=== PATIENT | female | born 1985 ===

== ENCOUNTER 2018-02-27 08:41 | Inpatient (IN) | payer BC ==
[2018-02-27] MEDS ORDERED: Sodium Chloride 0.9% 10 ML Syringe FLUSH PRN (09:00)
[2018-02-27] MEDS ORDERED: Albuterol/Ipratropium 3.0-0.5 MG/3 ML Neb Soln NEB ONE (09:05)
[2018-02-27] MEDS ORDERED: Azithromycin 250 MG Tab PO ONE (09:05)
[2018-02-27] MEDS ORDERED: methylPREDNISolone Sodium Succinate 125 MG/2 ML SDV IVPUSH ONE (09:05)
[2018-02-27] MEDS ORDERED: Sodium Chloride 0.9% 1,000 ML IV ONE (09:07)
[2018-02-27] MEDS ORDERED: cefTRIAXone 2 GM Vial IVPUSH SCH (11:15)
--- NOTE | 2018-02-27 11:33 | EDM.PDOC ---
ED HPI GENERAL MEDICAL PROBLEM - General Chief Complaint: Respiratory Problem Stated Complaint: LOW OXYGEN SENT FROM CLINIC Time Seen by Provider: 02/27/18 08:54 Source of Information: Reports: Patient History Limitations: Reports: No Limitations - History of Present Illness INITIAL COMMENTS - FREE TEXT/NARRATIVE: 32 y/o F presents with cough and SOB. Started 2 days ago. + cough, mildly productive. Feels SOB with exertion, ok at rest. Mild diffuse chest discomfort. No known fever but has had sweats. Feels fatigued. No nausea/vomiting. No abd pain. No rhinorrhea/sore throat. No lower extremity pain or swelling. Checked in to walk in clinic this AM and was noted to have SpO2 of 79% on RA so sent here. No history of reactive airway disease. 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 Denies: Fever HEENT: Denies: Throat Pain Respiratory: Reports: Shortness of Breath, Cough Cardiovascular: Denies: Edema Endocrine: Reports: No Symptoms GI/Abdominal: Denies: Abdominal Pain : Reports: No Symptoms Musculoskeletal: Reports: No Symptoms Skin: Reports: No Symptoms Neurological: Reports: No Symptoms Psychiatric: Reports: No Symptoms Hematologic/Lymphatic: Reports: No Symptoms Immunologic: Reports: No Symptoms ED EXAM, GENERAL - Physical Exam Exam: See Below Exam Limited By: No Limitations General Appearance: Alert, WD/WN, No Apparent Distress Eye Exam: Bilateral Eye: Normal Inspection Ears: Normal External Exam Nose: Normal Inspection Throat/Mouth: Normal Inspection, Normal Oropharynx, Normal Voice Head: Atraumatic, Normocephalic Neck: Normal Inspection Respiratory/Chest: No Accessory Muscle Use, Chest Non-Tender, Crackles, Rales ( bilat) Cardiovascular: Normal Peripheral Pulses, Regular Rate, Rhythm, No Edema, No Murmur GI/Abdominal: Soft, Non-Tender, No Distention Extremities: Normal Inspection, No Pedal Edema Neurological: Alert, Oriented, Normal Cognition, No Motor/Sensory Deficits Psychiatric: Normal Affect, Normal Mood Skin Exam: Warm, Dry, Intact, Normal Color, No Rash Course - Vital Signs Last Recorded V/S: Last Vital Signs Temp 35.8 C 02/27/18 12:40 Pulse 105 H 02/27/18 12:40 Resp 19 02/27/18 12:40 BP 150/88 H 02/27/18 12:40 Pulse Ox 99 02/27/18 12:40 - Orders/Labs/Meds Orders: Active Orders 24 hr Category Date Time Status RT Aerosol Therapy [RC] ASDIRECTED Care 02/27/18 09:06 Active Chest 2V [CR] Stat Exams 02/27/18 09:00 Taken CULTURE BLOOD [BC] Stat Lab 02/27/18 09:36 Received CULTURE BLOOD [BC] Stat Lab 02/27/18 09:45 Received LACTIC ACID [CHEM] Stat Lab 02/27/18 09:00 Ordered Sodium Chloride 0.9% [Saline Flush] Med 02/27/18 09:00 Active 10 ml FLUSH ASDIRECTED PRN cefTRIAXone [Rocephin] Med 02/27/18 11:15 Active 2 gm IVPUSH Q24H Blood Culture x2 Reflex Set [OM.PC] Stat Oth 02/27/18 09:00 Ordered Peripheral IV Insertion Adult [OM.PC] Routine Oth 02/27/18 09:00 Ordered Medication Orders Acetaminophen (Tylenol) 650 mg PO Q4H PRN PRN Reason: Pain (Mild 1-3)/fever Hydrocodone Bitart/Acetaminophen ([place] 325-5 Mg) 1 tab PO Q4H PRN PRN Reason: Pain (moderate 4-6) Albuterol/Ipratropium (Duoneb 3.0-0.5 Mg/3 Ml) 3 ml NEB Q4H PRN PRN Reason: Shortness Of Breath/wheezing Albuterol/Ipratropium (Duoneb 3.0-0.5 Mg/3 Ml) 3 ml NEB Q6HRRT [facility] Bisacodyl (Dulcolax) 5 mg PO DAILY PRN PRN Reason: Constipation Ceftriaxone Sodium (Rocephin) 2 gm IVPUSH Q24H [facility] Last Admin: 02/27/18 11:20 Dose: 2 gm Docusate Sodium (Colace) 100 mg PO BID PRN PRN Reason: Constipation Enoxaparin Sodium (Lovenox) 40 mg SUBCUT DAILY [facility] Guaifenesin/Phenylephrine HCl (Robitussin Dm) 10 ml PO QID PRN PRN Reason: cough Hydralazine HCl (Apresoline) 20 mg IVPUSH Q4H PRN PRN Reason: Hypertension Azithromycin 500 mg/ Sodium (Chloride) 250 mls @ 250 mls/hr IV Q24H [facility] Ondansetron HCl (Zofran Odt) 4 mg PO Q6H PRN PRN Reason: nausea, able to take PO Ondansetron HCl (Zofran) 4 mg IV Q6H PRN PRN Reason: Nausea/Vomiting Polyethylene Glycol (Miralax) 17 gm PO DAILY PRN PRN Reason: Constipation Saccharomyces Boulardii (Florastor) 250 mg PO DAILY [facility] Senna/Docusate Sodium (Senna Plus) 1 tab PO BID PRN PRN Reason: Constipation Sodium Chloride (Saline Flush) 10 ml FLUSH ASDIRECTED PRN PRN Reason: Keep Vein Open Last Admin: 02/27/18 09:34 Dose: 10 ml Labs: Laboratory Tests 02/27/18 02/27/18 02/27/18 Range/Units 09:00 09:16 09:16 WBC 9.20 (3.98-10.04) K/mm3 RBC 4.54 (3.98-5.22) M/mm3 Hgb 13.4 (11.2-15.7) gm/L Hct 41.8 (34.1-44.9) % MCV 92.1 (79.4-94.8) fl MCH 29.5 (25.6-32.2) pg MCHC 32.1 L (32.2-35.5) g/dl RDW Std Deviation 44.1 (36.4-46.3) fL Plt Count 292 (182-369) K/mm3 MPV 9.4 (9.4-12.3) fl Neut % (Auto) 82.1 H (34.0-71.1) % Lymph % (Auto) 4.8 L (19.3-51.7) % [place] % (Auto) 12.0 (4.7-12.5) % Eos % (Auto) 0.5 L (0.7-5.8) Baso % (Auto) 0.3 (0.1-1.2) % Neut # (Auto) 7.55 H (1.56-6.13) K/mm3 Lymph # (Auto) 0.44 L (1.18-3.74) K/mm3 [place] # (Auto) 1.10 H (0.24-0.36) K/mm3 Eos # (Auto) 0.05 (0.04-0.36) K/mm3 Baso # (Auto) 0.03 (0.01-0.08) K/mm3 Manual Slide Review Abnormal smear Sodium 137 (136-145) mEq/L Potassium 3.8 (3.5-5.1) mEq/L Chloride 102 (98-107) mEq/L Carbon Dioxide 27 (21-32) mEq/L Anion Gap 11.8 (5-15) BUN 8 (7-18) mg/dL Creatinine 0.5 L (0.55-1.02) mg/dL Est Cr Clr Drug Dosing 119.63 mL/min Estimated GFR (MDRD) > 60 (>60) mL/min BUN/Creatinine Ratio 16.0 (14-18) Glucose 107 H (74-106) mg/dL Calcium 8.0 L (8.5-10.1) mg/dL Total Bilirubin 0.2 (0.2-1.0) mg/dL AST 19 (15-37) U/L ALT 25 (14-59) U/L Alkaline Phosphatase 69 (46-116) U/L C-Reactive Protein 6.3 H* (<1.0) mg/dL Total Protein 7.5 (6.4-8.2) g/dl Albumin 3.2 L (3.4-5.0) g/dl Globulin 4.3 gm/dL Albumin/Globulin Ratio 0.7 L (1-2) Mycoplasma pneumon IgM Positive H (NEGATIVE) Meds: Medications Generic Name Dose Route Start Last Admin Trade Name Freq PRN Reason Stop Dose Admin Acetaminophen 650 mg 02/27/18 12:42 Tylenol PO Q4H PRN Pain (Mild 1-3)/fever Hydrocodone Bitart/Acetaminophen 1 tab 02/27/18 12:42 [place] 325-5 Mg PO Q4H PRN Pain (moderate 4-6) Albuterol/Ipratropium 3 ml 02/27/18 12:42 Duoneb 3.0-0.5 Mg/3 Ml NEB Q4H PRN Shortness Of Breath/wheezing Albuterol/Ipratropium 3 ml 02/27/18 15:00 Duoneb 3.0-0.5 Mg/3 Ml NEB Q6HRRT [facility] Bisacodyl 5 mg 02/27/18 12:42 Dulcolax PO DAILY PRN Constipation Ceftriaxone Sodium 2 gm 02/27/18 11:15 02/27/18 11:20 Rocephin IVPUSH 2 gm Q24H [facility] Administration Docusate Sodium 100 mg 02/27/18 12:42 Colace PO BID PRN Constipation Enoxaparin Sodium 40 mg 02/28/18 09:00 Lovenox SUBCUT DAILY [facility] Guaifenesin/Phenylephrine HCl 10 ml 02/27/18 12:42 Robitussin Dm PO QID PRN cough Hydralazine HCl 20 mg 02/27/18 12:52 Apresoline IVPUSH Q4H PRN Hypertension Azithromycin 500 mg/ Sodium 250 mls @ 250 mls/hr 02/28/18 09:00 Chloride IV Q24H [facility] Ondansetron HCl 4 mg 02/27/18 12:42 Zofran Odt PO Q6H PRN nausea, able to take PO Ondansetron HCl 4 mg 02/27/18 12:42 Zofran IV Q6H PRN Nausea/Vomiting Polyethylene Glycol 17 gm 02/27/18 12:42 Miralax PO DAILY PRN Constipation Saccharomyces Boulardii 250 mg 02/27/18 12:45 Florastor PO DAILY [facility] Senna/Docusate Sodium 1 tab 02/27/18 12:42 Senna Plus PO BID PRN Constipation Sodium Chloride 10 ml 02/27/18 09:00 02/27/18 09:34 Saline Flush FLUSH 10 ml ASDIRECTED PRN Administration Keep Vein Open Discontinued Medications Generic Name Dose Route Start Last Admin Trade Name Luis Antonioq PRN Reason Stop Dose Admin Albuterol/Ipratropium 3 ml 02/27/18 09:05 02/27/18 09:19 Duoneb 3.0-0.5 Mg/3 Ml NEB 02/27/18 09:06 3 ml ONETIME ONE Administration Azithromycin 500 mg 02/27/18 09:05 02/27/18 09:32 Zithromax PO 02/27/18 09:06 500 mg ONETIME ONE Administration Azithromycin 500 mg 02/28/18 09:00 Zithromax IV Q24H [facility] Sodium Chloride 1,000 mls @ 1,000 mls/hr 02/27/18 09:07 02/27/18 09:34 Normal Saline IV 02/27/18 10:06 1,000 mls/hr ONETIME ONE Administration Methylprednisolone Sodium Succinate 125 mg 02/27/18 09:05 02/27/18 09:35 Solu-Medrol IVPUSH 02/27/18 09:06 125 mg ONETIME ONE Administration - Re-Assessments/Exams Free Text/Narrative Re-Assessment/Exam: 02/27/18 13:46 EKG shows NSR, no significant ST/T abnormality. CXR shows R middle lobe infiltrate. Patient continues to have O2 requirement. Labs show normal WBC at 9 , +82% neutrophils. Labs otherwise unremarkable. Discussed with Dr. Trivedi who agrees to admit the patient given oxygen requirement. Departure - Departure Time of Disposition: 11:31 Disposition: Admitted As Inpatient 64 Clinical Impression: Hypoxia Pneumonia Qualifiers: Pneumonia type: due to unspecified organism Laterality: right Lung location: middle lobe of lung Qualified Code(s): J18.1 - Lobar pneumonia, unspecified organism - Discharge Information - My Orders Last 24 Hours: My Active Orders 02/27/18 09:00 Chest 2V [CR] Stat LACTIC ACID [CHEM] Stat Sodium Chloride 0.9% [Saline Flush] 10 ml FLUSH ASDIRECTED PRN Blood Culture x2 Reflex Set [OM.PC] Stat Peripheral IV Insertion Adult [OM.PC] Routine 02/27/18 09:06 RT Aerosol Therapy [RC] ASDIRECTED 02/27/18 09:36 CULTURE BLOOD [BC] Stat 02/27/18 09:45 CULTURE BLOOD [BC] Stat 02/27/18 11:15 cefTRIAXone [Rocephin] 2 gm IVPUSH Q24H - Assessment/Plan Last 24 Hours: My Active Orders 02/27/18 09:00 Chest 2V [CR] Stat LACTIC ACID [CHEM] Stat Sodium Chloride 0.9% [Saline Flush] 10 ml FLUSH ASDIRECTED PRN Blood Culture x2 Reflex Set [OM.PC] Stat Peripheral IV Insertion Adult [OM.PC] Routine 02/27/18 09:06 RT Aerosol Therapy [RC] ASDIRECTED 02/27/18 09:36 CULTURE BLOOD [BC] Stat 02/27/18 09:45 CULTURE BLOOD [BC] Stat 02/27/18 11:15 cefTRIAXone [Rocephin] 2 gm IVPUSH Q24H
--- NOTE | 2018-02-27 12:35 | PCM.HP ---
H&P History of Present Illness - General Date of Service: 02/27/18 Admit Problem/Dx: Admission Diagnosis/Problem Admission Diagnosis/Problem Pneumonia Source of Information: Patient, Old Records, Provider, RN, RN Notes Reviewed History Limitations: Reports: No Limitations - History of Present Illness Initial Comments - Free Text/Narative: Barbara Jolly is a 32 yo female who presents to our ED today 02/27/2018, with cough and shortness of breath over the past 2 days. She was reportedly seen in our clinic and found to have an oxygen saturation of 79% and told to come to the ER. She denies recent fever but has had felt sweaty. Has been fatigued. No nausea or vomiting, abdominal pain, rhinorrhea, sore throat, lower extremity pain, swelling. No history of reactive airway disease In the ED temperature was 36.4 Celsius. [id number]. Respirations 22. Blood pressure 141/98. Pulse ox 97%. Labs were obtained There is no leukocytosis with white blood count of 9.20. Hemoglobin 13.4. Hematocrit 41.8. she is normocytic. Platelet of 292,000. Neutrophils are elevated at 82.1%. Sodium was 137. Potassium 3.8. Chloride 102. Carbon monoxide 27. Anion gap 11.8. BUN 8. Creatinine low at 0.5. EGFR greater than 60. Glucose 107. Calcium 8.0. Bilirubin 0.2. AST is 19, ALT 25, alkaline phosphatase 69. Total protein 7.5. Albumin is slightly low at 3.2. Chest x-ray was obtained and does show a right middle lobe pneumonia Formal radiologist read is still pending. She was started on Rocephin and given azithromycin. She's also given 1 L fluid bolus, DuoNeb, and 145 mg Solu-Medrol. EKG was obtained and shows NSR with no significant ST abnormality. Lactic acid is pending. Blood cultures were obtained. She carries a history of: PCOS, PTSD, anxiety, morbid obesity, history of C. difficile, meralgia paraesthetica bilaterally. She was never a smoker. She is subsequently admitted to the medical floor. She is a full code. Her PCP is Stephanie Olivares PA-C here at [facility]. 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 Denies: Fever HEENT: Reports: No Symptoms. Denies: Ear Pain, Eye Pain, Headaches, Rhinitis, Post Nasal Drip, Sinus Congestion, Sore Throat, Vertigo, Visual Changes Pulmonary: Reports: Shortness of Breath, Cough, Sputum. Denies: Wheezing, Pleuritic Chest Pain, Hemoptysis Cardiovascular: Reports: Dyspnea on Exertion, Blood Pressure Problem (history of ). Denies: Chest Pain, Palpitations, Edema, Lightheadedness Gastrointestinal: Reports: No Symptoms. Denies: Abdominal Pain, Constipation, Diarrhea, Nausea, Vomiting Genitourinary: Reports: No Symptoms. Denies: Dysuria, Frequency, Burning, Pain , Urgency Musculoskeletal: Reports: No Symptoms Skin: Reports: No Symptoms Psychiatric: Reports: No Symptoms Neurological: Reports: No Symptoms. Denies: Dizziness, Headache, Numbness, Difficulty Walking, Gait Disturbance Hematologic/Lymphatic: Reports: No Symptoms Immunologic: Reports: No Symptoms Exam - Exam Exam: See Below - Vital Signs Vital Signs: Last Vital Signs Temp 97.6 F 02/27/18 08:52 Pulse 111 H 02/27/18 08:52 Resp 22 H 02/27/18 08:52 BP 141/98 H 02/27/18 08:52 Pulse Ox 97 02/27/18 09:06 Weight: 385 lb - Exam Quality Assessment: Supplemental Oxygen, Other (Morbidly obease ) General: Alert, Oriented, Cooperative. No: Mild Distress HEENT: Conjunctiva Clear, EACs Clear, EOMI, Hearing Intact, Mucosa Moist & Aquilla , Nares Patent, Posterior Pharynx Clear, PERRLA Neck: Supple, Trachea Midline, Full Range of Motion. No: JVD Lungs: Normal Respiratory Effort, Decreased Breath Sounds, Crackles, Rales Cardiovascular: Regular Rate, Regular Rhythm, Other (distant heart tones ) GI/Abdominal Exam: Normal Bowel Sounds, Soft, Non-Tender, No Organomegaly, No Distention, No Abnormal Bruit, No Mass, Pelvis Stable (Female) Exam: Deferred Rectal (Female) Exam: Deferred Back Exam: Normal Inspection, Full Range of Motion Extremities: Normal Inspection, Normal Range of Motion, Non-Tender, No Pedal Edema, Normal Capillary Refill Peripheral Pulses: 1+: Posterior Tibial (L), Posterior Tibial (R), Dorsalis Pedis (L), Dorsalis Pedis (R), 2+: Radial (L), Radial (R) Skin: Warm, Dry, Intact Neurological: Cranial Nerves Intact (grossly ) Neuro Extensive - Mental Status: Alert, Oriented x3, Normal Mood/Affect, Normal Cognition, Memory Intact Psychiatric: Alert, Normal Affect, Normal Mood - Patient Data Lab Results Last 24 hrs: Laboratory Results - last 24 hr 02/27/18 02/27/18 Range/Units 09:00 09:16 WBC 9.20 (3.98-10.04) K/mm3 RBC 4.54 (3.98-5.22) M/mm3 Hgb 13.4 (11.2-15.7) gm/L Hct 41.8 (34.1-44.9) % MCV 92.1 (79.4-94.8) fl MCH 29.5 (25.6-32.2) pg MCHC 32.1 L (32.2-35.5) g/dl RDW Std Deviation 44.1 (36.4-46.3) fL Plt Count 292 (182-369) K/mm3 MPV 9.4 (9.4-12.3) fl Neut % (Auto) 82.1 H (34.0-71.1) % Lymph % (Auto) 4.8 L (19.3-51.7) % [place] % (Auto) 12.0 (4.7-12.5) % Eos % (Auto) 0.5 L (0.7-5.8) Baso % (Auto) 0.3 (0.1-1.2) % Neut # (Auto) 7.55 H (1.56-6.13) K/mm3 Lymph # (Auto) 0.44 L (1.18-3.74) K/mm3 [place] # (Auto) 1.10 H (0.24-0.36) K/mm3 Eos # (Auto) 0.05 (0.04-0.36) K/mm3 Baso # (Auto) 0.03 (0.01-0.08) K/mm3 Manual Slide Review Abnormal smear Sodium 137 (136-145) mEq/L Potassium 3.8 (3.5-5.1) mEq/L Chloride 102 (98-107) mEq/L Carbon Dioxide 27 (21-32) mEq/L Anion Gap 11.8 (5-15) BUN 8 (7-18) mg/dL Creatinine 0.5 L (0.55-1.02) mg/dL Est Cr Clr Drug Dosing 119.63 mL/min Estimated GFR (MDRD) > 60 (>60) mL/min BUN/Creatinine Ratio 16.0 (14-18) Glucose 107 H (74-106) mg/dL Calcium 8.0 L (8.5-10.1) mg/dL Total Bilirubin 0.2 (0.2-1.0) mg/dL AST 19 (15-37) U/L ALT 25 (14-59) U/L Alkaline Phosphatase 69 (46-116) U/L Total Protein 7.5 (6.4-8.2) g/dl Albumin 3.2 L (3.4-5.0) g/dl Globulin 4.3 gm/dL Albumin/Globulin Ratio 0.7 L (1-2) Result Diagrams: 02/27/18 09:00 02/27/18 09:16 - Problem List (1) Pneumonia SNOMED Code(s): 067031854 ICD Code: J18.9 - PNEUMONIA, UNSPECIFIED ORGANISM Status: Acute Priority : High Current Visit: Yes Qualifiers: Pneumonia type: due to Mycoplasma pneumoniae Laterality: right Lung location: middle lobe of lung Qualified Code(s): J15.7 - Pneumonia due to Mycoplasma pneumoniae (2) PCOS (polycystic ovarian syndrome) SNOMED Code(s): 09199358 ICD Code: E28.2 - POLYCYSTIC OVARIAN SYNDROME Status: Chronic Priority: Medium Current Visit: Yes (3) Anxiety SNOMED Code(s): 10283742 ICD Code: F41.9 - ANXIETY DISORDER, UNSPECIFIED Status: Chronic Priority : Medium Current Visit: Yes (4) History of Clostridium difficile infection SNOMED Code(s): 041083307, 293895135 ICD Code: Z86.19 - PERSONAL HISTORY OF OTHER INFECTIOUS AND PARASITIC DISEASES Status: Chronic Priority: Medium Current Visit: No (5) Meralgia paraesthetica SNOMED Code(s): 18019987 ICD Code: G57.10 - MERALGIA PARESTHETICA, UNSPECIFIED LOWER LIMB Status: Chronic Priority: Medium Current Visit: No Qualifiers: Laterality: unspecified laterality Qualified Code(s): G57.10 - Meralgia paresthetica, unspecified lower limb Problem List Initiated/Reviewed/Updated: Yes Orders Last 24hrs: Active Orders 24 hr Category Date Time Status Admission Status [Patient Status] [ADT] Routine ADT 02/27/18 11:51 Active EKG 12 Lead [EKG Documentation Completion] [RC] STAT Care 02/27/18 09:00 Active Peripheral IV Care [RC] . DIRECTED Care 02/27/18 09:00 Active POCTesting [POC Labs] [RC] ASDIRECTED Care 02/27/18 11:07 Active RT Aerosol Therapy [RC] ASDIRECTED Care 02/27/18 09:06 Active Chest 2V [CR] Stat Exams 02/27/18 09:00 Taken CULTURE BLOOD [BC] Stat Lab 02/27/18 09:36 Received CULTURE BLOOD [BC] Stat Lab 02/27/18 09:45 Received LACTIC ACID [CHEM] Stat Lab 02/27/18 09:00 Ordered Sodium Chloride 0.9% [Saline Flush] Med 02/27/18 09:00 Active 10 ml FLUSH ASDIRECTED PRN cefTRIAXone [Rocephin] Med 02/27/18 11:15 Active 2 gm IVPUSH Q24H Blood Culture x2 Reflex Set [OM.PC] Stat Oth 02/27/18 09:00 Ordered Peripheral IV Insertion Adult [OM.PC] Routine Oth 02/27/18 09:00 Ordered Medication Orders Ceftriaxone Sodium (Rocephin) 2 gm IVPUSH Q24H [facility] Last Admin: 02/27/18 11:20 Dose: 2 gm Sodium Chloride (Saline Flush) 10 ml FLUSH ASDIRECTED PRN PRN Reason: Keep Vein Open Last Admin: 02/27/18 09:34 Dose: 10 ml Assessment/Plan Comment:: I/P: Acute: Mycoplasma Pneumonia -Denies fever but reports cough, SOB with exertion over past 2 days -Oxygen saturations earlier in clinic of 79% -No fever on ED arrival but tachycardic -Right middle lobe on CXR, pending formal radiologist read -Rocephin and azithromycin started in ED - continue -Solu-medrol 125mg given in ED - stop -Lactic acid pending -No leukocytosis -CRP 6.3 -Sputum culture ordered -Robitussin-DM PRN -Duo-nebs -RT/IS/Acapella -Repeat CXR in 24-48 hours -Strep pneumo, viral respiratory panel - all pending -Negative influenza screen -Blood cultures pending -Ambulation/OT Hypoxia -Oxygen saturations at 79% at clinic prior to arrival -Saturations of 99% in ED on oxygen -Titrate O2 as needed -Likely 2/2 above -Other orders as above Chronic: Morbid obesity -BMI 72.7 -Clinic notes show A1C in January 2018 of 6.0, Lipid panel good, TSH good -Dietary consult PCOS Anxiety Meralgia Paraesthetica History of C. Diff infection Plan: Admit to medical floor Probiotic Routine AM labs DVT prophylaxis: Lovenox and ambulation Other orders as indicated above Code Status: Full code; PCP: Stephanie Olivares PA-C
[2018-02-27] MEDS ORDERED: Polyethylene Glycol 3350 Powder 17 GM Packet PO PRN (12:42)
[2018-02-27] MEDS ORDERED: Ondansetron 4 MG Tab.DIS PO PRN (12:42)
[2018-02-27] MEDS ORDERED: Bisacodyl 5 MG Tab PO PRN (12:42)
[2018-02-27] MEDS ORDERED: Ondansetron 4 MG/2 ML SDV IV PRN (12:42)
[2018-02-27] MEDS ORDERED: Albuterol/Ipratropium 3.0-0.5 MG/3 ML Neb Soln NEB PRN (12:42)
[2018-02-27] MEDS ORDERED: Acetaminophen/HYDROcodone 325-5 MG Tab PO PRN (12:42)
[2018-02-27] MEDS ORDERED: Acetaminophen 325 MG Tab PO PRN (12:42)
[2018-02-27] MEDS ORDERED: Docusate Sodium 100 MG Cap PO PRN (12:42)
[2018-02-27] MEDS: Saccharomyces Boulardii (Probiotic) 250 MG Cap PO SCH (14:03)
[2018-02-27] MEDS: Albuterol/Ipratropium 3.0-0.5 MG/3 ML Neb Soln NEB SCH ×2 (14:09→20:30)
[2018-02-28] MEDS: Albuterol/Ipratropium 3.0-0.5 MG/3 ML Neb Soln NEB SCH ×4 (02:01→20:11)
[2018-02-28] MEDS: Saccharomyces Boulardii (Probiotic) 250 MG Cap PO SCH (08:43)
[2018-02-28] MEDS: Azithromycin 500 MG in Sodium Chloride 0.9% 250 ML IV SCH (08:44)
[2018-02-28] MEDS: Enoxaparin 40 MG/0.4 ML Syringe SUBCUT SCH (08:44)
[2018-02-28] MEDS: hydrALAZINE 20 MG/ML SDV IVPUSH PRN ×2 (08:44→16:31)
[2018-02-28] MEDS ORDERED: Azithromycin 500 MG AdvVial IV SCH (09:00)
[2018-02-28] MEDS ORDERED: Spironolactone 25 MG Tab PO SCH (09:15)
--- NOTE | 2018-02-28 09:37 | CR ---
Chest: Two views of the chest are obtained. Comparison: No prior chest x-ray. Consolidation is seen within the right perihilar region. Left lung is clear. Heart size appears within normal limits for technique. Bony structures are unremarkable. Impression: 1. Consolidation within the right perihilar region most likely representing pneumonia. Diagnostic code #3
[2018-02-28] MEDS: Famotidine 20 MG Tab PO SCH ×2 (09:56→20:50)
[2018-02-28] MEDS: guaiFENesin/Dextromethorphan 100-10 MG/5 ML Soln 5 ML Cup PO PRN ×2 (09:58→16:24)
[2018-02-28] MEDS: NORGESTIMATE ETHINYL ESTRADIOL PO SCH (09:58)
[2018-02-28] MEDS: Venlafaxine 75 MG Cap.ER PO SCH (09:58)
[2018-02-28] MEDS ORDERED: Albuterol 0.083% 2.5 MG/3 ML Neb Soln NEB PRN (11:50)
[2018-02-28] MEDS: methylPREDNISolone Sodium Succinate 125 MG/2 ML SDV IVPUSH SCH ×3 (12:00→23:37)
[2018-02-28] MEDS: Benzonatate 100 MG Cap PO PRN (12:00)
[2018-02-28] MEDS ORDERED: Hydrochlorothiazide/Triamterene 25-37.5 MG Cap PO SCH (12:00)
--- NOTE | 2018-02-28 13:01 | PCM.PN ---
- General Info Date of Service: 02/28/18 Admission Dx/Problem (Free Text): Admission Diagnosis/Problem Admission Diagnosis/Problem Pneumonia Subjective Update: In to see Barbara today. She is sitting up in bed. Overall she is doing quite well. She has no complaints, except that she has been feeling some sinus congestion and ear "popping". She has been sleeping well. Good appetite. Ambulating. Pain is controlled. No fever, chills, chest pain. States she does have productive cough and shortness of breath with exertion. Urinating. Acapella. No concerns from nursing. Functional Status: Reports: Pain Controlled, Tolerating Diet, Ambulating, Urinating - Review of Systems General: Reports: No Symptoms. Denies: Fever, Weakness, Fatigue, Chills HEENT: Reports: Sinus Congestion, Other (ear "popping") Pulmonary: Reports: Shortness of Breath (on exertion), Cough, Sputum, Wheezing. Denies: Pleuritic Chest Pain Cardiovascular: Reports: Dyspnea on Exertion. Denies: Chest Pain Gastrointestinal: Reports: No Symptoms. Denies: Abdominal Pain, Constipation, Diarrhea, Nausea, Vomiting Genitourinary: Reports: No Symptoms. Denies: Dysuria, Frequency, Burning, Pain , Urgency Musculoskeletal: Reports: No Symptoms Skin: Reports: No Symptoms Neurological: Reports: No Symptoms. Denies: Headache Psychiatric: Reports: No Symptoms - Patient Data Vitals - Most Recent: Last Vital Signs Temp 97.7 F 02/28/18 11:48 Pulse 111 H 02/28/18 11:48 Resp 18 02/28/18 07:56 BP 138/90 02/28/18 11:48 Pulse Ox 98 02/28/18 11:48 Weight - Most Recent: 377 lb I&O - Last 24 Hours: Intake & Output 02/27/18 02/28/18 02/28/18 22:59 06:59 14:59 Intake Total 490 800 120 Output Total 400 5000 Balance 90 -4200 120 Lab Results Last 24 Hours: Laboratory Results - last 24 hr 02/27/18 02/27/18 02/27/18 Range/Units 09:16 09:16 14:43 WBC (3.98-10.04) K/mm3 RBC (3.98-5.22) M/mm3 Hgb (11.2-15.7) gm/L Hct (34.1-44.9) % MCV (79.4-94.8) fl MCH (25.6-32.2) pg MCHC (32.2-35.5) g/dl RDW Std Deviation (36.4-46.3) fL Plt Count (182-369) K/mm3 MPV (9.4-12.3) fl Neut % (Auto) (34.0-71.1) % Lymph % (Auto) (19.3-51.7) % [place] % (Auto) (4.7-12.5) % Eos % (Auto) (0.7-5.8) Baso % (Auto) (0.1-1.2) % Neut # (Auto) (1.56-6.13) K/mm3 Lymph # (Auto) (1.18-3.74) K/mm3 [place] # (Auto) (0.24-0.36) K/mm3 Eos # (Auto) (0.04-0.36) K/mm3 Baso # (Auto) (0.01-0.08) K/mm3 Sodium (136-145) mEq/L Potassium (3.5-5.1) mEq/L Chloride (98-107) mEq/L Carbon Dioxide (21-32) mEq/L Anion Gap (5-15) BUN (7-18) mg/dL Creatinine (0.55-1.02) mg/dL Est Cr Clr Drug Dosing mL/min Estimated GFR (MDRD) (>60) mL/min BUN/Creatinine Ratio (14-18) Glucose (74-106) mg/dL Lactic Acid 2.3 H (0.4-2.0) mmol/L Calcium (8.5-10.1) mg/dL Magnesium (1.8-2.4) mg/dl C-Reactive Protein 6.3 H* (<1.0) mg/dL HCG, Qual Negative (NEGATIVE) Mycoplasma pneumon IgM Positive H (NEGATIVE) 18 02/28/18 Range/Units 05:15 05:28 WBC 7.51 (3.98-10.04) K/mm3 RBC 4.31 (3.98-5.22) M/mm3 Hgb 12.9 (11.2-15.7) gm/L Hct 40.2 (34.1-44.9) % MCV 93.3 (79.4-94.8) fl MCH 29.9 (25.6-32.2) pg MCHC 32.1 L (32.2-35.5) g/dl RDW Std Deviation 44.4 (36.4-46.3) fL Plt Count 285 (182-369) K/mm3 MPV 9.5 (9.4-12.3) fl Neut % (Auto) 75.9 H (34.0-71.1) % Lymph % (Auto) 10.0 L (19.3-51.7) % [place] % (Auto) 13.7 H (4.7-12.5) % Eos % (Auto) 0 L (0.7-5.8) Baso % (Auto) 0.1 (0.1-1.2) % Neut # (Auto) 5.70 (1.56-6.13) K/mm3 Lymph # (Auto) 0.75 L (1.18-3.74) K/mm3 [place] # (Auto) 1.03 H (0.24-0.36) K/mm3 Eos # (Auto) 0.00 L (0.04-0.36) K/mm3 Baso # (Auto) 0.01 (0.01-0.08) K/mm3 Sodium 141 (136-145) mEq/L Potassium 4.2 (3.5-5.1) mEq/L Chloride 106 (98-107) mEq/L Carbon Dioxide 29 (21-32) mEq/L Anion Gap 10.2 (5-15) BUN 8 (7-18) mg/dL Creatinine 0.5 L (0.55-1.02) mg/dL Est Cr Clr Drug Dosing 119.63 mL/min Estimated GFR (MDRD) > 60 (>60) mL/min BUN/Creatinine Ratio 16.0 (14-18) Glucose 149 H (74-106) mg/dL Lactic Acid (0.4-2.0) mmol/L Calcium 8.0 L (8.5-10.1) mg/dL Magnesium 2.1 (1.8-2.4) mg/dl C-Reactive Protein 6.5 H* (<1.0) mg/dL HCG, Qual (NEGATIVE) Mycoplasma pneumon IgM (NEGATIVE) Ty Results Last 24 Hours: Microbiology 02/27/18 09:36 Aerobic Blood Culture - Preliminary Blood - Venous NO GROWTH AFTER 1 DAY Anaerobic Blood Culture - Preliminary NO GROWTH AFTER 1 DAY 02/27/18 09:45 Aerobic Blood Culture - Preliminary Blood - Venous - Lab Draw NO GROWTH AFTER 1 DAY Anaerobic Blood Culture - Preliminary NO GROWTH AFTER 1 DAY 02/27/18 21:00 Gram Stain - Preliminary Sputum - Expectorated Sputum Culture - Preliminary 02/27/18 12:38 Influenza Type A Antigen Screen - Final Nasal, Unspecified NEGATIVE INFLUENZA A VIRUS AG Influenza Type B Antigen Screen - Final NEGATIVE INFLUENZA B VIRUS AG Med Orders - Current: Current Medications Acetaminophen (Tylenol) 650 mg PO Q4H PRN PRN Reason: Pain (Mild 1-3)/fever Hydrocodone Bitart/Acetaminophen ([place] 325-5 Mg) 1 tab PO Q4H PRN PRN Reason: Pain (moderate 4-6) Albuterol (Proventil Neb Soln) 2.5 mg NEB Q4H PRN PRN Reason: Wheezing Albuterol/Ipratropium (Duoneb 3.0-0.5 Mg/3 Ml) 3 ml NEB Q4H PRN PRN Reason: Shortness Of Breath/wheezing Albuterol/Ipratropium (Duoneb 3.0-0.5 Mg/3 Ml) 3 ml NEB Q6HRRT [facility] Last Admin: 02/28/18 08:22 Dose: 3 ml Amlodipine Besylate (Norvasc) 5 mg PO BEDTIME [facility] Benzonatate (Tessalon Perles) 200 mg PO TID [facility] Stop: 03/01/18 11:30 Benzonatate (Tessalon Perles) 200 mg PO TID PRN PRN Reason: Cough Last Admin: 02/28/18 12:00 Dose: 200 mg Bisacodyl (Dulcolax) 5 mg PO DAILY PRN PRN Reason: Constipation Docusate Sodium (Colace) 100 mg PO BID PRN PRN Reason: Constipation Enoxaparin Sodium (Lovenox) 40 mg SUBCUT DAILY [facility] Last Admin: 02/28/18 08:44 Dose: 40 mg Famotidine (Pepcid) 20 mg PO BID [facility] Last Admin: 02/28/18 09:56 Dose: 20 mg Guaifenesin/Phenylephrine HCl (Robitussin Dm) 10 ml PO QID PRN PRN Reason: cough Last Admin: 02/28/18 09:58 Dose: 10 ml Hydralazine HCl (Apresoline) 20 mg IVPUSH Q4H PRN PRN Reason: Hypertension Last Admin: 02/28/18 08:44 Dose: 20 mg Azithromycin 500 mg/ Sodium (Chloride) 250 mls @ 250 mls/hr IV Q24H [facility] Last Admin: 02/28/18 08:44 Dose: 250 mls/hr Ceftriaxone Sodium 2 gm/ (Dextrose/Water) 100 mls @ 200 mls/hr IV Q24H [facility] Last Admin: 02/28/18 12:00 Dose: 200 mls/hr Metformin HCl (Glucophage) 500 mg PO BIDAC [facility] Methylprednisolone Sodium Succinate (Solu-Medrol) 125 mg IVPUSH Q6H [facility] Stop: 03/01/18 17:01 Last Admin: 02/28/18 12:00 Dose: 125 mg Ondansetron HCl (Zofran Odt) 4 mg PO Q6H PRN PRN Reason: nausea, able to take PO Ondansetron HCl (Zofran) 4 mg IV Q6H PRN PRN Reason: Nausea/Vomiting Norgestimate-Ethinyl Estradiol [Tri- Sprintec 208 Day] 0 each PO DAILY [facility] Last Admin: 02/28/18 09:58 Dose: 1 each Polyethylene Glycol (Miralax) 17 gm PO DAILY PRN PRN Reason: Constipation Saccharomyces Boulardii (Florastor) 250 mg PO DAILY [facility] Last Admin: 02/28/18 08:43 Dose: 250 mg Senna/Docusate Sodium (Senna Plus) 1 tab PO BID PRN PRN Reason: Constipation Sodium Chloride (Saline Flush) 10 ml FLUSH ASDIRECTED PRN PRN Reason: Keep Vein Open Last Admin: 02/27/18 09:34 Dose: 10 ml Spironolactone (Aldactone) 50 mg PO DAILY [facility] Venlafaxine HCl (Effexor Xr) 75 mg PO DAILY [facility] Last Admin: 02/28/18 09:58 Dose: 75 mg Discontinued Medications Albuterol/Ipratropium (Duoneb 3.0-0.5 Mg/3 Ml) 3 ml NEB ONETIME ONE Stop: 02/27/18 09:06 Last Admin: 02/27/18 09:19 Dose: 3 ml Azithromycin (Zithromax) 500 mg PO ONETIME ONE Stop: 02/27/18 09:06 Last Admin: 02/27/18 09:32 Dose: 500 mg Azithromycin (Zithromax) 500 mg IV Q24H [facility] Ceftriaxone Sodium (Rocephin) 2 gm IVPUSH Q24H [facility] Last Admin: 02/27/18 11:20 Dose: 2 gm Guaifenesin/Codeine Phosphate (Robitussin Ac) 10 ml PO Q6H PRN PRN Reason: Cough Sodium Chloride (Normal Saline) 1,000 mls @ 1,000 mls/hr IV ONETIME ONE Stop: 02/27/18 10:06 Last Admin: 02/27/18 09:34 Dose: 1,000 mls/hr Methylprednisolone Sodium Succinate (Solu-Medrol) 125 mg IVPUSH ONETIME ONE Stop: 02/27/18 09:06 Last Admin: 02/27/18 09:35 Dose: 125 mg Spironolactone (Aldactone) 50 mg PO DAILY [facility] Last Admin: 02/28/18 09:58 Dose: 50 mg Triamterene/HCTZ (Dyazide 25-37.5 Mg) 1 each PO DAILY [facility] Triamterene/HCTZ (Dyazide 25-37.5 Mg) 1 each PO DAILY [facility] - Exam Quality Assessment: DVT Prophylaxis. No: Supplemental Oxygen General: Alert, Oriented, Cooperative, No Acute Distress HEENT: Pupils Equal, Pupils Reactive, EOMI, Mucous Membr. Moist/[place], Other (no sinus tenderness, EACs Clear, Hearing Intact, TMs clear) Neck: Supple Lungs: Normal Respiratory Effort, Wheezing (throughout all lung mera) Cardiovascular: Regular Rate, Regular Rhythm GI/Abdominal Exam: Normal Bowel Sounds, Soft, Non-Tender, No Organomegaly, No Distention, No Abnormal Bruit, No Mass, Pelvis Stable (Female) Exam: Deferred Back Exam: Normal Inspection, Full Range of Motion Extremities: Normal Inspection, Normal Range of Motion, Non-Tender, No Pedal Edema, Normal Capillary Refill Peripheral Pulses: 2+: Posterior Tibial (L), Posterior Tibial (R), Dorsalis Pedis (L), Dorsalis Pedis (R) Skin: Warm, Dry, Intact Neurological: No New Focal Deficit Psy/Mental Status: Alert, Normal Affect, Normal Mood - Problem List & Annotations (1) Pneumonia SNOMED Code(s): 683703280 Code(s): J18.9 - PNEUMONIA, UNSPECIFIED ORGANISM Status: Acute Priority: High Current Visit: Yes Qualifiers: Pneumonia type: due to Mycoplasma pneumoniae Laterality: right Lung location: middle lobe of lung Qualified Code(s): J15.7 - Pneumonia due to Mycoplasma pneumoniae (2) Anxiety SNOMED Code(s): 24379796 Code(s): F41.9 - ANXIETY DISORDER, UNSPECIFIED Status: Chronic Priority: Medium Current Visit: Yes (3) PCOS (polycystic ovarian syndrome) SNOMED Code(s): 41753616 Code(s): E28.2 - POLYCYSTIC OVARIAN SYNDROME Status: Chronic Priority: Medium Current Visit: Yes (4) History of Clostridium difficile infection SNOMED Code(s): 416820270, 571846666 Code(s): Z86.19 - PERSONAL HISTORY OF OTHER INFECTIOUS AND PARASITIC DISEASES Status: Chronic Priority: Medium Current Visit: No (5) Meralgia paraesthetica SNOMED Code(s): 27161011 Code(s): G57.10 - MERALGIA PARESTHETICA, UNSPECIFIED LOWER LIMB Status: Chronic Priority: Medium Current Visit: No Qualifiers: Laterality: unspecified laterality Qualified Code(s): G57.10 - Meralgia paresthetica, unspecified lower limb - Problem List Review Problem List Initiated/Reviewed/Updated: Yes - My Orders Last 24 Hours: My Active Orders 02/28/18 09:15 Patient's Own Medication [Ptom] 0 each PO DAILY Venlafaxine [Effexor XR] 75 mg PO DAILY 02/28/18 09:45 Famotidine [Pepcid] 20 mg PO BID 02/28/18 11:00 cefTRIAXone [Rocephin] 2 gm Dextrose 5% in Water 100 ml IV Q24H 02/28/18 11:31 Benzonatate [Tessalon Perles] 200 mg PO TID PRN 02/28/18 15:00 Benzonatate [Tessalon Perles] 200 mg PO TID 02/28/18 16:00 metFORMIN [Glucophage] 500 mg PO BIDAC 02/28/18 21:00 amLODIPine [Norvasc] 5 mg PO BEDTIME 03/01/18 05:11 LACTIC ACID [CHEM] AM LIPID PANEL [CHEM] AM 03/01/18 09:00 Spironolactone [Aldactone] 50 mg PO DAILY 03/02/18 05:11 LACTIC ACID [CHEM] AM - Plan Plan:: I/P: Acute: Mycoplasma Pneumonia -Denies fever but reports cough, SOB with exertion over past 2 days -Oxygen saturations earlier in clinic of 79% --> now 98% on RA -No fever on ED arrival but tachycardic -CXR 02/27/18--> Consolidation within the right perihilar region most likely PNA -Rocephin and azithromycin started in ED --> continue -Solu-medrol 125mg given in ED -->Start Solumedrol 125 Q8H x6 doses -Lactic acid--> 2.3 -No leukocytosis -CRP 6.3--> 6.5 -Sputum culture ordered -Robitussin-DM PRN, Tesslon pearls 200mg TID, then PRN -Duo-nebs -RT/IS/Acapella -Repeat CXR in 24-48 hours -Strep pneumo, viral respiratory panel - all pending -Negative influenza screen -Blood cultures pending -Ambulation/OT HTN/Tachycardia, acute -Pt states usually has when sick -140's/90's, HR 90's-116 -Continue at home Aldactone -Norvasc 5mg at bedtime -Hydralazine PRN Resolved: Hypoxia, improved to resolved -Oxygen saturations at 79% at clinic prior to arrival -Saturations of 99% in ED on oxygen--> now 98% on RA -Titrate O2 as needed -Likely 2/2 above -Other orders as above Chronic: Morbid obesity -BMI 72.7 -Clinic notes show A1C in January 2018 of 6.0, Lipid panel good, TSH good -Dietary consult -Fasting lipids in the AM PCOS--> On Aldactone Anxiety Meralgia Paraesthetica History of C. Diff infection Plan: Admit to medical floor Probiotic Routine AM labs DVT prophylaxis: Lovenox and ambulation GI prophylaxis: Pepcid Other orders as indicated above Code Status: Full code; PCP: Stephanie Olivares PA-C
[2018-02-28] MEDS: metFORMIN 500 MG Tab PO SCH (16:24)
[2018-02-28] MEDS: Benzonatate 100 MG Cap PO SCH ×2 (16:24→20:50)
[2018-02-28] MEDS: amLODIPine 10 MG Tab PO SCH (20:50)
[2018-03-01] MEDS: Albuterol/Ipratropium 3.0-0.5 MG/3 ML Neb Soln NEB SCH ×4 (02:03→20:08)
[2018-03-01] MEDS: metFORMIN 500 MG Tab PO SCH ×2 (05:42→16:16)
[2018-03-01] MEDS: methylPREDNISolone Sodium Succinate 125 MG/2 ML SDV IVPUSH SCH ×3 (05:42→16:17)
[2018-03-01] MEDS: guaiFENesin/Dextromethorphan 100-10 MG/5 ML Soln 5 ML Cup PO PRN ×2 (08:16→16:16)
[2018-03-01] MEDS: Famotidine 20 MG Tab PO SCH ×2 (08:17→21:49)
[2018-03-01] MEDS: Benzonatate 100 MG Cap PO SCH (08:17)
[2018-03-01] MEDS: Saccharomyces Boulardii (Probiotic) 250 MG Cap PO SCH (08:17)
[2018-03-01] MEDS: Spironolactone 25 MG Tab PO SCH (08:17)
[2018-03-01] MEDS: NORGESTIMATE ETHINYL ESTRADIOL PO SCH (08:18)
[2018-03-01] MEDS: Enoxaparin 40 MG/0.4 ML Syringe SUBCUT SCH (08:18)
[2018-03-01] MEDS: Venlafaxine 75 MG Cap.ER PO SCH (08:18)
[2018-03-01] MEDS: Azithromycin 500 MG in Sodium Chloride 0.9% 250 ML IV SCH (08:19)
[2018-03-01] MEDS ORDERED: Hydrochlorothiazide/Triamterene 25-37.5 MG Cap PO SCH (09:00)
--- NOTE | 2018-03-01 09:32 | PCM.PN ---
- General Info Date of Service: 03/01/18 Admission Dx/Problem (Free Text): Admission Diagnosis/Problem Admission Diagnosis/Problem Pneumonia Subjective Update: In to see Barbara today. She is sitting up in bed visiting with her cousin. Overall she is doing quite well and is feeling more energetic. She has no complaints. She has been sleeping well. Good appetite. Ambulating. Pain is controlled. No fever, chills, chest pain. States she does have productive cough and shortness of breath with exertion, both of which are improving every day. Urinating. Acapella. I went over her Chest Xray with her and it showed that the PNA is improving. I also updated her on the positive results of mycoplasma pneumonia and human metapneumovirus. I answered all of her questions and she states she understands. No concerns from nursing. Functional Status: Reports: Pain Controlled, Tolerating Diet, Ambulating, Urinating - Review of Systems General: Reports: No Symptoms. Denies: Fever, Chills HEENT: Reports: No Symptoms Pulmonary: Reports: Shortness of Breath (on exertion, improving), Cough ( improving), Sputum (decreasing), Wheezing (improving) Cardiovascular: Reports: Dyspnea on Exertion. Denies: Chest Pain, Palpitations , Edema Gastrointestinal: Reports: No Symptoms. Denies: Abdominal Pain, Diarrhea, Nausea, Vomiting Genitourinary: Reports: No Symptoms. Denies: Dysuria, Frequency, Burning, Pain Musculoskeletal: Reports: No Symptoms Skin: Reports: No Symptoms Neurological: Reports: No Symptoms Psychiatric: Reports: No Symptoms - Patient Data Vitals - Most Recent: Last Vital Signs Temp 98.8 F 03/01/18 05:39 Pulse 94 03/01/18 05:39 Resp 20 03/01/18 05:39 BP 136/82 03/01/18 05:39 Pulse Ox 96 03/01/18 08:44 Weight - Most Recent: 373 lb 4.8 oz I&O - Last 24 Hours: Intake & Output 02/28/18 03/01/18 03/01/18 22:59 06:59 14:59 Intake Total 800 900 Output Total 2950 3500 Balance -2150 -2600 Lab Results Last 24 Hours: Laboratory Results - last 24 hr 03/01/18 03/01/18 03/01/18 Range/Units 05:30 05:30 05:30 WBC 8.52 (3.98-10.04) K/mm3 RBC 4.53 (3.98-5.22) M/mm3 Hgb 13.3 (11.2-15.7) gm/L Hct 42.2 (34.1-44.9) % MCV 93.2 (79.4-94.8) fl MCH 29.4 (25.6-32.2) pg MCHC 31.5 L (32.2-35.5) g/dl RDW Std Deviation 45.8 (36.4-46.3) fL Plt Count 323 (182-369) K/mm3 MPV 9.6 (9.4-12.3) fl Neut % (Auto) 86.1 H (34.0-71.1) % Lymph % (Auto) 9.2 L (19.3-51.7) % Donley % (Auto) 4.2 L (4.7-12.5) % Eos % (Auto) 0 L (0.7-5.8) Baso % (Auto) 0.1 (0.1-1.2) % Neut # (Auto) 7.34 H (1.56-6.13) K/mm3 Lymph # (Auto) 0.78 L (1.18-3.74) K/mm3 Donley # (Auto) 0.36 (0.24-0.36) K/mm3 Eos # (Auto) 0.00 L (0.04-0.36) K/mm3 Baso # (Auto) 0.01 (0.01-0.08) K/mm3 Manual Slide Review Normal smear Sodium 140 (136-145) mEq/L Potassium 4.5 (3.5-5.1) mEq/L Chloride 104 (98-107) mEq/L Carbon Dioxide 27 (21-32) mEq/L Anion Gap 13.5 (5-15) BUN 10 (7-18) mg/dL Creatinine 0.6 (0.55-1.02) mg/dL Est Cr Clr Drug Dosing 99.69 mL/min Estimated GFR (MDRD) > 60 (>60) mL/min BUN/Creatinine Ratio 16.7 (14-18) Glucose 173 H (74-106) mg/dL Lactic Acid 1.8 (0.4-2.0) mmol/L Calcium 8.5 (8.5-10.1) mg/dL Magnesium 2.0 (1.8-2.4) mg/dl C-Reactive Protein 2.6 H* (<1.0) mg/dL Triglycerides 53 (<150) mg/dL Cholesterol 171 (<200) mg/dL LDL Cholesterol Direct 87 (<100) mg/dL HDL Cholesterol 70.0 H (40-59) mg/dL Ty Results Last 24 Hours: Microbiology 02/27/18 13:34 Respiratory Virus Panel (PCR) - Final Nasopharyngeal Swab - Nare, Unspecified 02/27/18 16:35 Streptococcus pneumoniae Antigen (M - Final Urine 02/27/18 21:00 Gram Stain - Final Sputum - Expectorated Sputum Culture - Preliminary 02/27/18 09:36 Aerobic Blood Culture - Preliminary Blood - Venous NO GROWTH AFTER 1 DAY Anaerobic Blood Culture - Preliminary NO GROWTH AFTER 1 DAY 02/27/18 09:45 Aerobic Blood Culture - Preliminary Blood - Venous - Lab Draw NO GROWTH AFTER 1 DAY Anaerobic Blood Culture - Preliminary NO GROWTH AFTER 1 DAY Med Orders - Current: Current Medications Acetaminophen (Tylenol) 650 mg PO Q4H PRN PRN Reason: Pain (Mild 1-3)/fever Hydrocodone Bitart/Acetaminophen ([place] 325-5 Mg) 1 tab PO Q4H PRN PRN Reason: Pain (moderate 4-6) Albuterol (Proventil Neb Soln) 2.5 mg NEB Q4H PRN PRN Reason: Wheezing Albuterol/Ipratropium (Duoneb 3.0-0.5 Mg/3 Ml) 3 ml NEB Q4H PRN PRN Reason: Shortness Of Breath/wheezing Albuterol/Ipratropium (Duoneb 3.0-0.5 Mg/3 Ml) 3 ml NEB Q6HRRT [facility] [place] Last Admin: 03/01/18 08:43 Dose: 3 ml Amlodipine Besylate (Norvasc) 5 mg PO BEDTIME SANIA Last Admin: 02/28/18 20:50 Dose: 5 mg Benzonatate (Tessalon Perles) 200 mg PO TID [facility] [place] Stop: 03/01/18 11:30 Last Admin: 03/01/18 08:17 Dose: 200 mg Benzonatate (Tessalon Perles) 200 mg PO TID PRN PRN Reason: Cough Last Admin: 02/28/18 12:00 Dose: 200 mg Bisacodyl (Dulcolax) 5 mg PO DAILY PRN PRN Reason: Constipation Docusate Sodium (Colace) 100 mg PO BID PRN PRN Reason: Constipation Enoxaparin Sodium (Lovenox) 40 mg SUBCUT DAILY [facility] [place] Last Admin: 03/01/18 08:18 Dose: 40 mg Famotidine (Pepcid) 20 mg PO BID [facility] [place] Last Admin: 03/01/18 08:17 Dose: 20 mg Guaifenesin/Phenylephrine HCl (Robitussin Dm) 10 ml PO QID PRN PRN Reason: cough Last Admin: 03/01/18 08:16 Dose: 10 ml Hydralazine HCl (Apresoline) 20 mg IVPUSH Q4H PRN PRN Reason: Hypertension Last Admin: 02/28/18 16:31 Dose: 20 mg Azithromycin 500 mg/ Sodium (Chloride) 250 mls @ 250 mls/hr IV Q24H [facility] [place] Last Admin: 03/01/18 08:19 Dose: 250 mls/hr Ceftriaxone Sodium 2 gm/ (Dextrose/Water) 100 mls @ 200 mls/hr IV Q24H [facility] [place] Last Admin: 02/28/18 12:00 Dose: 200 mls/hr Metformin HCl (Glucophage) 500 mg PO BIDAC [facility] [place] Last Admin: 03/01/18 05:42 Dose: 500 mg Methylprednisolone Sodium Succinate (Solu-Medrol) 125 mg IVPUSH Q6H [facility] [place] Stop: 03/01/18 17:01 Last Admin: 03/01/18 05:42 Dose: 125 mg Ondansetron HCl (Zofran Odt) 4 mg PO Q6H PRN PRN Reason: nausea, able to take PO Ondansetron HCl (Zofran) 4 mg IV Q6H PRN PRN Reason: Nausea/Vomiting Norgestimate-Ethinyl Estradiol [Tri- Sprintec 208 Day] 0 each PO DAILY [facility] [place] Last Admin: 03/01/18 08:18 Dose: 1 each Polyethylene Glycol (Miralax) 17 gm PO DAILY PRN PRN Reason: Constipation Saccharomyces Boulardii (Florastor) 250 mg PO DAILY [facility] [place] Last Admin: 03/01/18 08:17 Dose: 250 mg Senna/Docusate Sodium (Senna Plus) 1 tab PO BID PRN PRN Reason: Constipation Sodium Chloride (Saline Flush) 10 ml FLUSH ASDIRECTED PRN PRN Reason: Keep Vein Open Last Admin: 02/27/18 09:34 Dose: 10 ml Spironolactone (Aldactone) 50 mg PO DAILY [facility] [place] Last Admin: 03/01/18 08:17 Dose: 50 mg Venlafaxine HCl (Effexor Xr) 75 mg PO DAILY [facility] [place] Last Admin: 03/01/18 08:18 Dose: 75 mg Discontinued Medications Albuterol/Ipratropium (Duoneb 3.0-0.5 Mg/3 Ml) 3 ml NEB ONETIME ONE Stop: 02/27/18 09:06 Last Admin: 02/27/18 09:19 Dose: 3 ml Azithromycin (Zithromax) 500 mg PO ONETIME ONE Stop: 02/27/18 09:06 Last Admin: 02/27/18 09:32 Dose: 500 mg Azithromycin (Zithromax) 500 mg IV Q24H [facility] [place] Ceftriaxone Sodium (Rocephin) 2 gm IVPUSH Q24H [facility] [place] Last Admin: 02/27/18 11:20 Dose: 2 gm Guaifenesin/Codeine Phosphate (Robitussin Ac) 10 ml PO Q6H PRN PRN Reason: Cough Sodium Chloride (Normal Saline) 1,000 mls @ 1,000 mls/hr IV ONETIME ONE Stop: 02/27/18 10:06 Last Admin: 02/27/18 09:34 Dose: 1,000 mls/hr Methylprednisolone Sodium Succinate (Solu-Medrol) 125 mg IVPUSH ONETIME ONE Stop: 02/27/18 09:06 Last Admin: 02/27/18 09:35 Dose: 125 mg Spironolactone (Aldactone) 50 mg PO DAILY [facility] [place] Last Admin: 02/28/18 09:58 Dose: 50 mg Triamterene/HCTZ (Dyazide 25-37.5 Mg) 1 each PO DAILY [facility] [place] Last Admin: 02/28/18 12:03 Dose: Not Given Triamterene/HCTZ (Dyazide 25-37.5 Mg) 1 each PO DAILY [facility] [place] - Exam Quality Assessment: DVT Prophylaxis General: Alert, Oriented, Cooperative, No Acute Distress HEENT: Pupils Equal, Pupils Reactive, EOMI, Mucous Membr. Moist/Linda Neck: Supple Lungs: Normal Respiratory Effort, Wheezing (throughout lung mera, improving) Cardiovascular: Regular Rate, Regular Rhythm GI/Abdominal Exam: Normal Bowel Sounds, Soft, Non-Tender, No Organomegaly, No Distention, No Abnormal Bruit, No Mass, Pelvis Stable (Female) Exam: Deferred Back Exam: Normal Inspection, Full Range of Motion Extremities: Normal Inspection, Normal Range of Motion, Non-Tender, No Pedal Edema, Normal Capillary Refill Peripheral Pulses: 2+: Posterior Tibial (L), Posterior Tibial (R), Dorsalis Pedis (L), Dorsalis Pedis (R) Skin: Warm, Dry, Intact Neurological: No New Focal Deficit Psy/Mental Status: Alert, Normal Affect, Normal Mood - Problem List & Annotations (1) Pneumonia SNOMED Code(s): 998613522 Code(s): J18.9 - PNEUMONIA, UNSPECIFIED ORGANISM Status: Acute Priority: High Current Visit: Yes Qualifiers: Pneumonia type: due to Mycoplasma pneumoniae Laterality: right Lung location: middle lobe of lung Qualified Code(s): J15.7 - Pneumonia due to Mycoplasma pneumoniae (2) Anxiety SNOMED Code(s): 87761215 Code(s): F41.9 - ANXIETY DISORDER, UNSPECIFIED Status: Chronic Priority: Medium Current Visit: Yes (3) PCOS (polycystic ovarian syndrome) SNOMED Code(s): 33260985 Code(s): E28.2 - POLYCYSTIC OVARIAN SYNDROME Status: Chronic Priority: Medium Current Visit: Yes (4) History of Clostridium difficile infection SNOMED Code(s): 539420312, 571028030 Code(s): Z86.19 - PERSONAL HISTORY OF OTHER INFECTIOUS AND PARASITIC DISEASES Status: Chronic Priority: Medium Current Visit: No (5) Meralgia paraesthetica SNOMED Code(s): 53256686 Code(s): G57.10 - MERALGIA PARESTHETICA, UNSPECIFIED LOWER LIMB Status: Chronic Priority: Medium Current Visit: No Qualifiers: Laterality: unspecified laterality Qualified Code(s): G57.10 - Meralgia paresthetica, unspecified lower limb - Problem List Review Problem List Initiated/Reviewed/Updated: Yes - My Orders Last 24 Hours: My Active Orders 02/28/18 09:15 Patient's Own Medication [Ptom] 0 each PO DAILY Venlafaxine [Effexor XR] 75 mg PO DAILY 02/28/18 09:45 Famotidine [Pepcid] 20 mg PO BID 02/28/18 11:00 cefTRIAXone [Rocephin] 2 gm Dextrose 5% in Water 100 ml IV Q24H 02/28/18 11:31 Benzonatate [Tessalon Perles] 200 mg PO TID PRN 02/28/18 15:00 Benzonatate [Tessalon Perles] 200 mg PO TID 02/28/18 16:00 metFORMIN [Glucophage] 500 mg PO BIDAC 02/28/18 21:00 amLODIPine [Norvasc] 5 mg PO BEDTIME 03/01/18 09:00 Spironolactone [Aldactone] 50 mg PO DAILY 03/02/18 05:11 LACTIC ACID [CHEM] AM - Plan Plan:: I/P: Acute: CAP- Mycoplasma and Human Metapneumo virus, improving -Denies fever but reports cough, SOB with exertion x 2 days -O2 in clinic of 79% --> now 98% on RA -No fever on ED arrival but tachycardic -CXR 02/27/18--> Consolidation within the right perihilar region most likely PNA -Rocephin and azithromycin started in ED --> continue -Solu-medrol 125mg given in ED -->Start Solumedrol 125 Q8H x6 doses -Lactic acid--> 2.3-->1.8 -No leukocytosis -CRP 6.3--> 6.5-->2.6 -Robitussin-DM PRN, Tesslon pearls 200mg TID, then PRN -Duo-nebs, RT/IS/Acapella -Repeat CXR 03/01/18--> Improving PNA, not resolved -Strep pneumo, influenza, blood cultures negative -RVP--> POSITIVE MYCOPLASMA PNA and HUMAN METAPNEUMO VIRUS -Sputum culture--> Gram positive cocci, moderate -Ambulation/OT HTN/Tachycardia, acute -Most likely 2/2 above, steroids, albuterol treatment -Pt states usually has when sick -140's/90's, HR 90's-116 -Continue at home Aldactone -Norvasc 5mg at bedtime -Hydralazine and Lopressor PRN -TSH ordered Resolved: Hypoxia, improved to resolved -Oxygen saturations at 79% at clinic prior to arrival -Saturations of 99% in ED on oxygen--> now 98% on RA -Titrate O2 as needed -Likely 2/2 above -Other orders as above Chronic: Morbid obesity -BMI 72.7 -Clinic notes show A1C in January 2018 of 6.0, Lipid panel good, TSH good -Dietary consult -Fasting lipids in the AM PCOS--> On Aldactone Anxiety Meralgia Paraesthetica History of C. Diff infection Plan: Admit to medical floor Probiotic Routine AM labs DVT prophylaxis: Lovenox and ambulation GI prophylaxis: Pepcid Other orders as indicated above Code Status: Full code; PCP: Stephanie Olivares PA-C
--- NOTE | 2018-03-01 10:21 | CR ---
Chest: Two views of the chest were obtained. Comparison: Prior chest x-ray of 02/27/18. Diminishing pneumonia is seen within the right perihilar region. Findings have not yet completely resolved. Heart size and mediastinum are normal. Bony structures are unremarkable. Impression: 1. Improved but not resolved right perihilar pneumonia. Diagnostic code #3
[2018-03-01] MEDS ORDERED: Codeine/guaiFENesin 100-10 MG/5 ML Syrup 5 ML Cup PO PRN (11:32)
[2018-03-01] MEDS ORDERED: Metoprolol Tartrate 5 MG/5 ML SDV IVPUSH PRN (12:51)
[2018-03-01] MEDS: Benzonatate 100 MG Cap PO PRN (16:17)
[2018-03-01] MEDS: amLODIPine 10 MG Tab PO SCH (21:47)
[2018-03-02] MEDS: Albuterol/Ipratropium 3.0-0.5 MG/3 ML Neb Soln NEB SCH ×2 (02:08→08:24)
[2018-03-02] MEDS: metFORMIN 500 MG Tab PO SCH (07:02)
[2018-03-02] MEDS: Benzonatate 100 MG Cap PO PRN (07:02)
[2018-03-02] MEDS: guaiFENesin/Dextromethorphan 100-10 MG/5 ML Soln 5 ML Cup PO PRN (07:03)
[2018-03-02 08:25] VITALS: BP 136/79
[2018-03-02] MEDS ORDERED: Azithromycin 250 MG Tab PO SCH (09:00)
[2018-03-02] MEDS: Spironolactone 25 MG Tab PO SCH (09:17)
[2018-03-02] MEDS: Saccharomyces Boulardii (Probiotic) 250 MG Cap PO SCH (09:17)
[2018-03-02] MEDS: Venlafaxine 75 MG Cap.ER PO SCH (09:17)
[2018-03-02] MEDS: Famotidine 20 MG Tab PO SCH (09:17)
[2018-03-02] MEDS: NORGESTIMATE ETHINYL ESTRADIOL PO SCH (09:18)
[2018-03-02] MEDS: Enoxaparin 40 MG/0.4 ML Syringe SUBCUT SCH (09:18)
--- NOTE | 2018-03-02 09:20 | PCM.PN ---
- General Info Date of Service: 03/02/18 Admission Dx/Problem (Free Text): Admission Diagnosis/Problem Admission Diagnosis/Problem Pneumonia Subjective Update: In to see Barbara today. She is sitting up in bed visiting with her cousin. Overall she is doing quite well and is feeling more energetic. She has no complaints. She has been sleeping well. Good appetite. Ambulating. Pain is controlled. No fever, chills, chest pain. States she does have productive cough and shortness of breath with exertion, both of which are improving every day. Urinating. Acapella. I went over her Chest Xray with her and it showed that the PNA is improving. I also updated her on the positive results of mycoplasma pneumonia and human metapneumovirus. I answered all of her questions and she states she understands. No concerns from nursing. Functional Status: Reports: Pain Controlled, Tolerating Diet, Ambulating, Urinating, Other (acapella) - Review of Systems General: Reports: No Symptoms. Denies: Fever, Chills HEENT: Reports: No Symptoms Pulmonary: Reports: Shortness of Breath (on exertion), Cough (improving), Sputum (improving) Cardiovascular: Reports: Dyspnea on Exertion. Denies: Chest Pain, Palpitations , Edema Gastrointestinal: Reports: No Symptoms. Denies: Abdominal Pain, Diarrhea, Nausea, Vomiting Genitourinary: Reports: No Symptoms. Denies: Dysuria, Frequency, Burning, Pain Musculoskeletal: Reports: No Symptoms Skin: Reports: No Symptoms Neurological: Reports: No Symptoms Psychiatric: Reports: No Symptoms - Patient Data Vitals - Most Recent: Last Vital Signs Temp 97.5 F 03/02/18 07:49 Pulse 93 03/02/18 07:49 Resp 18 03/02/18 07:49 BP 136/79 03/02/18 07:49 Pulse Ox 93 L 03/02/18 08:25 Weight - Most Recent: 371 lb 12.8 oz I&O - Last 24 Hours: Intake & Output 03/01/18 03/02/18 03/02/18 22:59 06:59 14:59 Intake Total 1840 200 Output Total 1000 1200 Balance 840 -1000 Lab Results Last 24 Hours: Laboratory Results - last 24 hr 03/01/18 03/02/18 03/02/18 Range/Units 05:30 06:07 06:07 WBC 12.69 H (3.98-10.04) K/mm3 RBC 4.68 (3.98-5.22) M/mm3 Hgb 13.9 (11.2-15.7) gm/L Hct 43.3 (34.1-44.9) % MCV 92.5 (79.4-94.8) fl MCH 29.7 (25.6-32.2) pg MCHC 32.1 L (32.2-35.5) g/dl RDW Std Deviation 46.1 (36.4-46.3) fL Plt Count 354 (182-369) K/mm3 MPV 9.1 L (9.4-12.3) fl Neut % (Auto) 81.9 H (34.0-71.1) % Lymph % (Auto) 8.9 L (19.3-51.7) % [place] % (Auto) 8.7 (4.7-12.5) % Eos % (Auto) 0 L (0.7-5.8) Baso % (Auto) 0.2 (0.1-1.2) % Neut # (Auto) 10.40 H (1.56-6.13) K/mm3 Lymph # (Auto) 1.13 L (1.18-3.74) K/mm3 [place] # (Auto) 1.10 H (0.24-0.36) K/mm3 Eos # (Auto) 0.00 L (0.04-0.36) K/mm3 Baso # (Auto) 0.02 (0.01-0.08) K/mm3 Manual Slide Review Abnormal smear Sodium 140 (136-145) mEq/L Potassium 3.9 (3.5-5.1) mEq/L Chloride 104 (98-107) mEq/L Carbon Dioxide 28 (21-32) mEq/L Anion Gap 11.9 (5-15) BUN 16 (7-18) mg/dL Creatinine 0.6 (0.55-1.02) mg/dL Est Cr Clr Drug Dosing 99.69 mL/min Estimated GFR (MDRD) > 60 (>60) mL/min BUN/Creatinine Ratio 26.7 H (14-18) Glucose 145 H (74-106) mg/dL Lactic Acid (0.4-2.0) mmol/L Calcium 8.6 (8.5-10.1) mg/dL Magnesium 2.0 (1.8-2.4) mg/dl C-Reactive Protein 1.1 H* (<1.0) mg/dL TSH 3rd Generation 0.495 (0.358-3.74) uIU/mL 03/02/18 Range/Units 06:07 WBC (3.98-10.04) K/mm3 RBC (3.98-5.22) M/mm3 Hgb (11.2-15.7) gm/L Hct (34.1-44.9) % MCV (79.4-94.8) fl MCH (25.6-32.2) pg MCHC (32.2-35.5) g/dl RDW Std Deviation (36.4-46.3) fL Plt Count (182-369) K/mm3 MPV (9.4-12.3) fl Neut % (Auto) (34.0-71.1) % Lymph % (Auto) (19.3-51.7) % [place] % (Auto) (4.7-12.5) % Eos % (Auto) (0.7-5.8) Baso % (Auto) (0.1-1.2) % Neut # (Auto) (1.56-6.13) K/mm3 Lymph # (Auto) (1.18-3.74) K/mm3 [place] # (Auto) (0.24-0.36) K/mm3 Eos # (Auto) (0.04-0.36) K/mm3 Baso # (Auto) (0.01-0.08) K/mm3 Manual Slide Review Sodium (136-145) mEq/L Potassium (3.5-5.1) mEq/L Chloride (98-107) mEq/L Carbon Dioxide (21-32) mEq/L Anion Gap (5-15) BUN (7-18) mg/dL Creatinine (0.55-1.02) mg/dL Est Cr Clr Drug Dosing mL/min Estimated GFR (MDRD) (>60) mL/min BUN/Creatinine Ratio (14-18) Glucose (74-106) mg/dL Lactic Acid 1.8 (0.4-2.0) mmol/L Calcium (8.5-10.1) mg/dL Magnesium (1.8-2.4) mg/dl C-Reactive Protein (<1.0) mg/dL TSH 3rd Generation (0.358-3.74) uIU/mL Ty Results Last 24 Hours: Microbiology 02/27/18 21:00 Gram Stain - Final Sputum - Expectorated Sputum Culture - Final 02/27/18 09:36 Aerobic Blood Culture - Preliminary Blood - Venous NO GROWTH AFTER 2 DAYS Anaerobic Blood Culture - Preliminary NO GROWTH AFTER 2 DAYS 02/27/18 09:45 Aerobic Blood Culture - Preliminary Blood - Venous - Lab Draw NO GROWTH AFTER 2 DAYS Anaerobic Blood Culture - Preliminary NO GROWTH AFTER 2 DAYS Med Orders - Current: Current Medications Acetaminophen (Tylenol) 650 mg PO Q4H PRN PRN Reason: Pain (Mild 1-3)/fever Hydrocodone Bitart/Acetaminophen ([place] 325-5 Mg) 1 tab PO Q4H PRN PRN Reason: Pain (moderate 4-6) Albuterol (Proventil Neb Soln) 2.5 mg NEB Q4H PRN PRN Reason: Wheezing Albuterol/Ipratropium (Duoneb 3.0-0.5 Mg/3 Ml) 3 ml NEB Q4H PRN PRN Reason: Shortness Of Breath/wheezing Albuterol/Ipratropium (Duoneb 3.0-0.5 Mg/3 Ml) 3 ml NEB Q6HRRT [facility] Last Admin: 03/02/18 08:24 Dose: 3 ml Amlodipine Besylate (Norvasc) 5 mg PO BEDTIME [facility] Last Admin: 03/01/18 21:47 Dose: 5 mg Azithromycin (Zithromax) 250 mg PO DAILY [facility] Benzonatate (Tessalon Perles) 200 mg PO TID PRN PRN Reason: Cough Last Admin: 03/02/18 07:02 Dose: 200 mg Bisacodyl (Dulcolax) 5 mg PO DAILY PRN PRN Reason: Constipation Docusate Sodium (Colace) 100 mg PO BID PRN PRN Reason: Constipation Enoxaparin Sodium (Lovenox) 40 mg SUBCUT DAILY [facility] Last Admin: 03/01/18 08:18 Dose: 40 mg Famotidine (Pepcid) 20 mg PO BID [facility] Last Admin: 03/01/18 21:49 Dose: 20 mg Guaifenesin/Phenylephrine HCl (Robitussin Dm) 10 ml PO QID PRN PRN Reason: cough Last Admin: 03/02/18 07:03 Dose: 10 ml Hydralazine HCl (Apresoline) 20 mg IVPUSH Q4H PRN PRN Reason: Hypertension Last Admin: 02/28/18 16:31 Dose: 20 mg Ceftriaxone Sodium 2 gm/ (Dextrose/Water) 100 mls @ 200 mls/hr IV Q24H [facility] Last Admin: 03/01/18 11:16 Dose: 200 mls/hr Metformin HCl (Glucophage) 500 mg PO BIDAC [facility] Last Admin: 03/02/18 07:02 Dose: 500 mg Metoprolol Tartrate (Lopressor) 5 mg IVPUSH Q4H PRN PRN Reason: Tachycardia Ondansetron HCl (Zofran Odt) 4 mg PO Q6H PRN PRN Reason: nausea, able to take PO Ondansetron HCl (Zofran) 4 mg IV Q6H PRN PRN Reason: Nausea/Vomiting Norgestimate-Ethinyl Estradiol [Tri- Sprintec 208 Day] 0 each PO DAILY [facility] Last Admin: 03/01/18 08:18 Dose: 1 each Polyethylene Glycol (Miralax) 17 gm PO DAILY PRN PRN Reason: Constipation Saccharomyces Boulardii (Florastor) 250 mg PO DAILY [facility] Last Admin: 03/01/18 08:17 Dose: 250 mg Senna/Docusate Sodium (Senna Plus) 1 tab PO BID PRN PRN Reason: Constipation Sodium Chloride (Saline Flush) 10 ml FLUSH ASDIRECTED PRN PRN Reason: Keep Vein Open Last Admin: 02/27/18 09:34 Dose: 10 ml Spironolactone (Aldactone) 50 mg PO DAILY [facility] Last Admin: 03/01/18 08:17 Dose: 50 mg Venlafaxine HCl (Effexor Xr) 75 mg PO DAILY [facility] Last Admin: 03/01/18 08:18 Dose: 75 mg Discontinued Medications Albuterol/Ipratropium (Duoneb 3.0-0.5 Mg/3 Ml) 3 ml NEB ONETIME ONE Stop: 02/27/18 09:06 Last Admin: 02/27/18 09:19 Dose: 3 ml Azithromycin (Zithromax) 500 mg PO ONETIME ONE Stop: 02/27/18 09:06 Last Admin: 02/27/18 09:32 Dose: 500 mg Azithromycin (Zithromax) 500 mg IV Q24H [facility] Benzonatate (Tessalon Perles) 200 mg PO TID [facility] Stop: 03/01/18 11:30 Last Admin: 03/01/18 08:17 Dose: 200 mg Ceftriaxone Sodium (Rocephin) 2 gm IVPUSH Q24H [facility] Last Admin: 02/27/18 11:20 Dose: 2 gm Guaifenesin/Codeine Phosphate (Robitussin Ac) 10 ml PO Q6H PRN PRN Reason: Cough Sodium Chloride (Normal Saline) 1,000 mls @ 1,000 mls/hr IV ONETIME ONE Stop: 02/27/18 10:06 Last Admin: 02/27/18 09:34 Dose: 1,000 mls/hr Azithromycin 500 mg/ Sodium (Chloride) 250 mls @ 250 mls/hr IV Q24H [facility] Last Admin: 03/01/18 08:19 Dose: 250 mls/hr Methylprednisolone Sodium Succinate (Solu-Medrol) 125 mg IVPUSH ONETIME ONE Stop: 02/27/18 09:06 Last Admin: 02/27/18 09:35 Dose: 125 mg Methylprednisolone Sodium Succinate (Solu-Medrol) 125 mg IVPUSH Q6H [facility] Stop: 03/01/18 17:01 Last Admin: 03/01/18 16:17 Dose: 125 mg Spironolactone (Aldactone) 50 mg PO DAILY [facility] Last Admin: 02/28/18 09:58 Dose: 50 mg Triamterene/HCTZ (Dyazide 25-37.5 Mg) 1 each PO DAILY [facility] Last Admin: 02/28/18 12:03 Dose: Not Given Triamterene/HCTZ (Dyazide 25-37.5 Mg) 1 each PO DAILY [facility] - Exam Quality Assessment: DVT Prophylaxis. No: Supplemental Oxygen General: Alert, Oriented, Cooperative, No Acute Distress HEENT: Pupils Equal, Pupils Reactive, EOMI, Mucous Membr. Moist/[place] Neck: Supple Lungs: Normal Respiratory Effort, Wheezing (throughout lung mera, improving) Cardiovascular: Regular Rate, Regular Rhythm GI/Abdominal Exam: Normal Bowel Sounds, Soft, Non-Tender, No Organomegaly, No Distention, No Abnormal Bruit, No Mass, Pelvis Stable (Female) Exam: Deferred Back Exam: Normal Inspection, Full Range of Motion Extremities: Normal Inspection, Normal Range of Motion, Non-Tender, No Pedal Edema, Normal Capillary Refill Peripheral Pulses: 2+: Posterior Tibial (L), Posterior Tibial (R), Dorsalis Pedis (L), Dorsalis Pedis (R) Skin: Warm, Dry, Intact Neurological: No New Focal Deficit Psy/Mental Status: Alert, Normal Affect, Normal Mood - Problem List & Annotations (1) Pneumonia SNOMED Code(s): 932701822 Code(s): J18.9 - PNEUMONIA, UNSPECIFIED ORGANISM Status: Acute Priority: High Current Visit: Yes Qualifiers: Pneumonia type: due to Mycoplasma pneumoniae Laterality: right Lung location: middle lobe of lung Qualified Code(s): J15.7 - Pneumonia due to Mycoplasma pneumoniae (2) Anxiety SNOMED Code(s): 58326969 Code(s): F41.9 - ANXIETY DISORDER, UNSPECIFIED Status: Chronic Priority: Medium Current Visit: Yes (3) PCOS (polycystic ovarian syndrome) SNOMED Code(s): 59442539 Code(s): E28.2 - POLYCYSTIC OVARIAN SYNDROME Status: Chronic Priority: Medium Current Visit: Yes (4) History of Clostridium difficile infection SNOMED Code(s): 159296351, 110336907 Code(s): Z86.19 - PERSONAL HISTORY OF OTHER INFECTIOUS AND PARASITIC DISEASES Status: Chronic Priority: Medium Current Visit: No (5) Meralgia paraesthetica SNOMED Code(s): 39105034 Code(s): G57.10 - MERALGIA PARESTHETICA, UNSPECIFIED LOWER LIMB Status: Chronic Priority: Medium Current Visit: No Qualifiers: Laterality: unspecified laterality Qualified Code(s): G57.10 - Meralgia paresthetica, unspecified lower limb - Problem List Review Problem List Initiated/Reviewed/Updated: Yes - My Orders Last 24 Hours: My Active Orders 03/01/18 09:00 Spironolactone [Aldactone] 50 mg PO DAILY 03/01/18 12:51 Metoprolol Tartrate [Lopressor] 5 mg IVPUSH Q4H PRN 03/02/18 09:00 Azithromycin [Zithromax] 250 mg PO DAILY - Plan Plan:: I/P: Acute: CAP- Mycoplasma and Human Metapneumo virus, improving -Denies fever but reports cough, SOB with exertion x 2 days -O2 in clinic of 79% --> now 98% on RA -No fever on ED arrival but tachycardic -CXR 02/27/18--> Consolidation within the right perihilar region most likely PNA -Rocephin and azithromycin started in ED --> continue -Solu-medrol 125mg given in ED -->Start Solumedrol 125 Q8H x6 doses -Lactic acid--> 2.3-->1.8 -WBC 12.69 -CRP 6.3--> 6.5-->2.6-->1.8 -Repeat CXR 03/01/18--> Improving PNA, not resolved -Strep pneumo, influenza, blood cultures negative -POSITIVE MYCOPLASMA PNA and HUMAN METAPNEUMO VIRUS -Sputum culture--> Gram positive cocci, moderate -Ambulation/OT -Robitussin-DM PRN, Tesslon pearls 200mg TID, then PRN -Duo-nebs, RT/IS/Acapella HTN/Tachycardia, acute -Most likely 2/2 above, steroids, albuterol treatment -Pt states usually has when sick -140's/90's, HR 90's-116 -Continue at home Aldactone -Norvasc 5mg at bedtime -Hydralazine and Lopressor PRN -TSH within normal limits Resolved: Hypoxia, improved to resolved -Oxygen saturations at 79% at clinic prior to arrival -Saturations of 99% in ED on oxygen--> now 98% on RA -Titrate O2 as needed -Likely 2/2 above -Other orders as above Chronic: Morbid obesity -BMI 72.7 -Clinic notes show A1C in January 2018 of 6.0, Lipid panel good, TSH good -Dietary consult -Fasting lipids in the AM PCOS--> On Aldactone Anxiety Meralgia Paraesthetica History of C. Diff infection Plan: Admit to medical floor Probiotic Routine AM labs DVT prophylaxis: Lovenox and ambulation GI prophylaxis: Pepcid Other orders as indicated above Code Status: Full code; PCP: Stephanie Olivares PA-C
--- NOTE | 2018-03-02 12:47 | PCM.DCSUM1 ---
Discharge Summary - Hospital Course HPI Initial Comments: 32 y/o F presents with cough and SOB. Started 2 days ago. + cough, mildly productive. Feels SOB with exertion, ok at rest. Mild diffuse chest discomfort. No known fever but has had sweats. Feels fatigued. No nausea/vomiting. No abd pain. No rhinorrhea/sore throat. No lower extremity pain or swelling. Checked in to walk in clinic this AM and was noted to have SpO2 of 79% on RA so sent here. No history of reactive airway disease. - Discharge Data Discharge Date: 03/02/18 (ADMIT 02/27/18) Discharge Disposition: Home, Self-Care 01 Condition: Good - Discharge Diagnosis/Problem(s) (1) Pneumonia SNOMED Code(s): 814322471 ICD Code: J18.9 - PNEUMONIA, UNSPECIFIED ORGANISM Status: Acute Priority : High Current Visit: Yes Qualifiers: Pneumonia type: due to Mycoplasma pneumoniae Laterality: right Lung location: middle lobe of lung Qualified Code(s): J15.7 - Pneumonia due to Mycoplasma pneumoniae (2) Anxiety SNOMED Code(s): 40388393 ICD Code: F41.9 - ANXIETY DISORDER, UNSPECIFIED Status: Chronic Priority : Medium Current Visit: Yes (3) PCOS (polycystic ovarian syndrome) SNOMED Code(s): 78766981 ICD Code: E28.2 - POLYCYSTIC OVARIAN SYNDROME Status: Chronic Priority: Medium Current Visit: Yes (4) History of Clostridium difficile infection SNOMED Code(s): 253722565, 347695787 ICD Code: Z86.19 - PERSONAL HISTORY OF OTHER INFECTIOUS AND PARASITIC DISEASES Status: Chronic Priority: Medium Current Visit: No (5) Meralgia paraesthetica SNOMED Code(s): 37663124 ICD Code: G57.10 - MERALGIA PARESTHETICA, UNSPECIFIED LOWER LIMB Status: Chronic Priority: Medium Current Visit: No Qualifiers: Laterality: unspecified laterality Qualified Code(s): G57.10 - Meralgia paresthetica, unspecified lower limb - Patient Summary/Data Operative Procedure(s) Performed: none Complications: none Consults: Consultations 02/27/18 12:42 Consult to [facility] [CONS] Routine PT Evaluation and Treatment [CONS] Routine Respiratory Care Assess and Treatment [CONS] Routine Labs Pending at D/C: none Recommended Follow-up Testing/Procedures: Follow up with PCP on Monday. Return to work on Monday. Planned Operative Procedure(s) after DC: none Hospital Course: I/P: Acute: CAP- Mycoplasma and Human Metapneumo virus, improving -Denies fever but reports cough, SOB with exertion x 2 days -O2 in clinic of 79% --> now 98% on RA -No fever on ED arrival but tachycardic -CXR 02/27/18--> Consolidation within the right perihilar region most likely PNA -Rocephin and azithromycin started in ED --> continue -Solu-medrol 125mg given in ED -->Start Solumedrol 125 Q8H x6 doses -Lactic acid--> 2.3-->1.8 -WBC 12.69 -CRP 6.3--> 6.5-->2.6-->1.8-->1.1 -Repeat CXR 03/01/18--> Improving PNA, not resolved -Strep pneumo, influenza, blood cultures negative -POSITIVE MYCOPLASMA PNA and HUMAN METAPNEUMO VIRUS -Sputum culture--> Gram positive cocci, moderate -Ambulation/OT -Robitussin-DM PRN, Tesslon pearls 200mg TID, then PRN -Duo-nebs, RT/IS/Acapella HTN/Tachycardia, acute -Most likely 2/2 above, steroids, albuterol treatment -Pt states usually has when sick -140's/90's, HR 90's-116 -Continue at home Aldactone -Norvasc 5mg at bedtime--> D/C today, going home -Hydralazine and Lopressor PRN--> D/C today, going home -TSH within normal limits Resolved: Hypoxia, improved to resolved -Oxygen saturations at 79% at clinic prior to arrival -Saturations of 99% in ED on oxygen--> now 98% on RA -Titrate O2 as needed -Likely 2/2 above -Other orders as above Chronic: Morbid obesity -BMI 72.7 -Clinic notes show A1C in January 2018 of 6.0, Lipid panel good, TSH good -Dietary consult -Fasting lipids in the AM PCOS--> On Aldactone Anxiety Meralgia Paraesthetica History of C. Diff infection Plan: Admit to medical floor Probiotic Routine AM labs DVT prophylaxis: Lovenox and ambulation GI prophylaxis: Pepcid Other orders as indicated above Code Status: Full code; PCP: Stephanie Olivares PA-C D/C today back home Barbara has recovered quite well. She had multiple tests done. She was found to have community acquired pneumonia- Mycoplasma and Human Metapneumo virus positive with chest x-ray showing consolidation within the right perihilar region. This has since improved. She should follow-up with her primary care provider on Monday and return to work on Monday. She had some HTN and tachycardia during her stay which may have been caused by the steroid and albuterol treatments. This should be rechecked by her PCP on Monday. This can be worked up further by her PCP. She was discharged home on Azithromycin 2502 days, Keflex 500 BID 4 days, Tessalon Perles for cough, Ventolin inhaler for wheezing, and Robitussin DM for cough. She will be discharged home today. - Patient Instructions Diet: Weight Loss Diet Activity: As Tolerated, Cough & Deep Breathe Driving: May Drive Today Showering/Bathing: May Shower Notify Provider of: Fever, Increased Pain, Nausea and/or Vomiting Other/Special Instructions: Return to ED if worsening productive cough, fever/ chills, shortness of breath - Discharge Plan Prescriptions/Med Rec: Albuterol [Ventolin HFA] 1 - 2 puff INH Q4HR PRN #1 container PRN Reason: Wheezing Azithromycin [IJD: Azithromycin] 250 mg PO DAILY #2 tablet Benzonatate [Tessalon Perle] 200 mg PO TID PRN #30 capsule PRN Reason: Cough Cephalexin [Keflex] 500 mg PO BID #8 capsule Dextromethorphan/guaiFENesin [Robitussin DM] 10 ml PO Q4H PRN #1 bottle PRN Reason: cough Saccharomyces Boulardii [Florastor] 250 mg PO BID #22 cap Home Medications: Home Meds Norgestimate-Ethinyl Estradiol [Ortho Tri-Cyclen Lo Tablet] 1 tab PO DAILY 08/08 [History] Spironolactone [Aldactone] 50 mg PO DAILY 02/27/18 [History] Venlafaxine HCl [Venlafaxine HCl ER] 75 mg PO DAILY 02/27/18 [History] metFORMIN [Glucophage XR] 500 mg PO BIDAC 02/27/18 [History] Albuterol [Ventolin HFA] 1 - 2 puff INH Q4HR PRN #1 container 03/02/18 [Rx] Azithromycin [IJD: Azithromycin] 250 mg PO DAILY #2 tablet 03/02/18 [Rx] Benzonatate [Tessalon Perle] 200 mg PO TID PRN #30 capsule 03/02/18 [Rx] Cephalexin [Keflex] 500 mg PO BID #8 capsule 03/02/18 [Rx] Dextromethorphan/guaiFENesin [Robitussin DM] 10 ml PO Q4H PRN #1 bottle [Rx] Saccharomyces Boulardii [Florastor] 250 mg PO BID #22 cap 03/02/18 [Rx] Patient Handouts: Mycoplasma Infection, Pediatric, Human Metapneumovirus Infection, Pediatric, Community-Acquired Pneumonia, Adult, [id number] Referrals: Rebecca Valero GRANULATING BLENDER [Nurse Practitioner] - 03/05/18 10:00 am (Please follow up Rebecca Valero on March 05 at 1000.) - Discharge Summary/Plan Comment DC Time >30 min.: Yes (40) - General Info Date of Service: 03/02/18 Admission Dx/Problem (Free Text: Admission Diagnosis/Problem Admission Diagnosis/Problem Pneumonia Subjective Update: In to see Barbara today. She is sitting up in bed and excited to go home. Overall she is doing quite well and is feeling more energetic. She has no complaints. She has been sleeping well. Good appetite. Ambulating. Pain is controlled. No fever, chills, chest pain. States she does have productive cough and shortness of breath with exertion, and has noticed some blood-tinged sputum - otherwise it is improving. I told her to follow up with PCP regarding the sputum, but reassured her it is most likely due to irritation from coughing. Urinating. Acapella. I answered all of her questions and she states she understands. No concerns from nursing. She will be D/C'd back home today. Functional Status: Reports: Pain Controlled, Tolerating Diet, Ambulating, Urinating - Review of Systems General: Reports: No Symptoms. Denies: Fever, Chills HEENT: Reports: No Symptoms Pulmonary: Reports: Cough (improving), Sputum (blood-tinged, improving), Wheezing (minimal, throughout lung mera) Cardiovascular: Reports: Dyspnea on Exertion. Denies: Chest Pain, Palpitations , Edema, Lightheadedness Gastrointestinal: Reports: No Symptoms. Denies: Abdominal Pain, Diarrhea, Nausea, Vomiting Genitourinary: Reports: No Symptoms. Denies: Dysuria, Frequency, Burning, Pain Musculoskeletal: Reports: No Symptoms Skin: Reports: No Symptoms Neurological: Reports: No Symptoms Psychiatric: Reports: No Symptoms - Patient Data Vitals - Most Recent: Last Vital Signs Temp 97.5 F 03/02/18 07:49 Pulse 93 03/02/18 07:49 Resp 18 03/02/18 07:49 BP 136/79 03/02/18 07:49 Pulse Ox 93 L 03/02/18 08:25 Weight - Most Recent: 371 lb 12.8 oz I&O - Last 24 hours: Intake & Output 03/01/18 03/02/18 03/02/18 22:59 06:59 14:59 Intake Total 1840 200 0 Output Total 1000 1200 Balance 840 -1000 0 Lab Results - Last 24 hrs: Laboratory Results - last 24 hr 03/01/18 03/02/18 03/02/18 Range/Units 05:30 06:07 06:07 WBC 12.69 H (3.98-10.04) K/mm3 RBC 4.68 (3.98-5.22) M/mm3 Hgb 13.9 (11.2-15.7) gm/L Hct 43.3 (34.1-44.9) % MCV 92.5 (79.4-94.8) fl MCH 29.7 (25.6-32.2) pg MCHC 32.1 L (32.2-35.5) g/dl RDW Std Deviation 46.1 (36.4-46.3) fL Plt Count 354 (182-369) K/mm3 MPV 9.1 L (9.4-12.3) fl Neut % (Auto) 81.9 H (34.0-71.1) % Lymph % (Auto) 8.9 L (19.3-51.7) % Ceiba % (Auto) 8.7 (4.7-12.5) % Eos % (Auto) 0 L (0.7-5.8) Baso % (Auto) 0.2 (0.1-1.2) % Neut # (Auto) 10.40 H (1.56-6.13) K/mm3 Lymph # (Auto) 1.13 L (1.18-3.74) K/mm3 Ceiba # (Auto) 1.10 H (0.24-0.36) K/mm3 Eos # (Auto) 0.00 L (0.04-0.36) K/mm3 Baso # (Auto) 0.02 (0.01-0.08) K/mm3 Manual Slide Review Abnormal smear Sodium 140 (136-145) mEq/L Potassium 3.9 (3.5-5.1) mEq/L Chloride 104 (98-107) mEq/L Carbon Dioxide 28 (21-32) mEq/L Anion Gap 11.9 (5-15) BUN 16 (7-18) mg/dL Creatinine 0.6 (0.55-1.02) mg/dL Est Cr Clr Drug Dosing 99.69 mL/min Estimated GFR (MDRD) > 60 (>60) mL/min BUN/Creatinine Ratio 26.7 H (14-18) Glucose 145 H (74-106) mg/dL Lactic Acid (0.4-2.0) mmol/L Calcium 8.6 (8.5-10.1) mg/dL Magnesium 2.0 (1.8-2.4) mg/dl C-Reactive Protein 1.1 H* (<1.0) mg/dL TSH 3rd Generation 0.495 (0.358-3.74) uIU/mL 03/02/18 Range/Units 06:07 WBC (3.98-10.04) K/mm3 RBC (3.98-5.22) M/mm3 Hgb (11.2-15.7) gm/L Hct (34.1-44.9) % MCV (79.4-94.8) fl MCH (25.6-32.2) pg MCHC (32.2-35.5) g/dl RDW Std Deviation (36.4-46.3) fL Plt Count (182-369) K/mm3 MPV (9.4-12.3) fl Neut % (Auto) (34.0-71.1) % Lymph % (Auto) (19.3-51.7) % Ceiba % (Auto) (4.7-12.5) % Eos % (Auto) (0.7-5.8) Baso % (Auto) (0.1-1.2) % Neut # (Auto) (1.56-6.13) K/mm3 Lymph # (Auto) (1.18-3.74) K/mm3 Ceiba # (Auto) (0.24-0.36) K/mm3 Eos # (Auto) (0.04-0.36) K/mm3 Baso # (Auto) (0.01-0.08) K/mm3 Manual Slide Review Sodium (136-145) mEq/L Potassium (3.5-5.1) mEq/L Chloride (98-107) mEq/L Carbon Dioxide (21-32) mEq/L Anion Gap (5-15) BUN (7-18) mg/dL Creatinine (0.55-1.02) mg/dL Est Cr Clr Drug Dosing mL/min Estimated GFR (MDRD) (>60) mL/min BUN/Creatinine Ratio (14-18) Glucose (74-106) mg/dL Lactic Acid 1.8 (0.4-2.0) mmol/L Calcium (8.5-10.1) mg/dL Magnesium (1.8-2.4) mg/dl C-Reactive Protein (<1.0) mg/dL TSH 3rd Generation (0.358-3.74) uIU/mL CHRIS Results - Last 24 hrs: Microbiology 02/27/18 09:36 Aerobic Blood Culture - Preliminary Blood - Venous NO GROWTH AFTER 3 DAYS Anaerobic Blood Culture - Preliminary NO GROWTH AFTER 3 DAYS 02/27/18 09:45 Aerobic Blood Culture - Preliminary Blood - Venous - Lab Draw NO GROWTH AFTER 3 DAYS Anaerobic Blood Culture - Preliminary NO GROWTH AFTER 3 DAYS 02/27/18 21:00 Gram Stain - Final Sputum - Expectorated Sputum Culture - Final Med Orders - Current: Current Medications Acetaminophen (Tylenol) 650 mg PO Q4H PRN PRN Reason: Pain (Mild 1-3)/fever Hydrocodone Bitart/Acetaminophen ([place] 325-5 Mg) 1 tab PO Q4H PRN PRN Reason: Pain (moderate 4-6) Albuterol (Proventil Neb Soln) 2.5 mg NEB Q4H PRN PRN Reason: Wheezing Albuterol/Ipratropium (Duoneb 3.0-0.5 Mg/3 Ml) 3 ml NEB Q4H PRN PRN Reason: Shortness Of Breath/wheezing Albuterol/Ipratropium (Duoneb 3.0-0.5 Mg/3 Ml) 3 ml NEB Q6HRRT [facility] Last Admin: 03/02/18 08:24 Dose: 3 ml Amlodipine Besylate (Norvasc) 5 mg PO BEDTIME [facility] Last Admin: 03/01/18 21:47 Dose: 5 mg Azithromycin (Zithromax) 250 mg PO DAILY [facility] Last Admin: 03/02/18 09:17 Dose: 250 mg Benzonatate (Tessalon Perles) 200 mg PO TID PRN PRN Reason: Cough Last Admin: 03/02/18 07:02 Dose: 200 mg Bisacodyl (Dulcolax) 5 mg PO DAILY PRN PRN Reason: Constipation Docusate Sodium (Colace) 100 mg PO BID PRN PRN Reason: Constipation Enoxaparin Sodium (Lovenox) 40 mg SUBCUT DAILY [facility] Last Admin: 03/02/18 09:18 Dose: 40 mg Famotidine (Pepcid) 20 mg PO BID [facility] Last Admin: 03/02/18 09:17 Dose: 20 mg Guaifenesin/Phenylephrine HCl (Robitussin Dm) 10 ml PO QID PRN PRN Reason: cough Last Admin: 03/02/18 07:03 Dose: 10 ml Hydralazine HCl (Apresoline) 20 mg IVPUSH Q4H PRN PRN Reason: Hypertension Last Admin: 02/28/18 16:31 Dose: 20 mg Ceftriaxone Sodium 2 gm/ (Dextrose/Water) 100 mls @ 200 mls/hr IV Q24H [facility] Last Admin: 03/02/18 11:05 Dose: 200 mls/hr Metformin HCl (Glucophage) 500 mg PO BIDAC [facility] Last Admin: 03/02/18 07:02 Dose: 500 mg Metoprolol Tartrate (Lopressor) 5 mg IVPUSH Q4H PRN PRN Reason: Tachycardia Ondansetron HCl (Zofran Odt) 4 mg PO Q6H PRN PRN Reason: nausea, able to take PO Ondansetron HCl (Zofran) 4 mg IV Q6H PRN PRN Reason: Nausea/Vomiting Norgestimate-Ethinyl Estradiol [Tri- Sprintec 208 Day] 0 each PO DAILY [facility] Last Admin: 03/02/18 09:18 Dose: 1 each Polyethylene Glycol (Miralax) 17 gm PO DAILY PRN PRN Reason: Constipation Saccharomyces Boulardii (Florastor) 250 mg PO DAILY [facility] Last Admin: 03/02/18 09:17 Dose: 250 mg Senna/Docusate Sodium (Senna Plus) 1 tab PO BID PRN PRN Reason: Constipation Sodium Chloride (Saline Flush) 10 ml FLUSH ASDIRECTED PRN PRN Reason: Keep Vein Open Last Admin: 02/27/18 09:34 Dose: 10 ml Spironolactone (Aldactone) 50 mg PO DAILY [facility] Last Admin: 03/02/18 09:17 Dose: 50 mg Venlafaxine HCl (Effexor Xr) 75 mg PO DAILY [facility] Last Admin: 03/02/18 09:17 Dose: 75 mg Discontinued Medications Albuterol/Ipratropium (Duoneb 3.0-0.5 Mg/3 Ml) 3 ml NEB ONETIME ONE Stop: 02/27/18 09:06 Last Admin: 02/27/18 09:19 Dose: 3 ml Azithromycin (Zithromax) 500 mg PO ONETIME ONE Stop: 02/27/18 09:06 Last Admin: 02/27/18 09:32 Dose: 500 mg Azithromycin (Zithromax) 500 mg IV Q24H [facility] Benzonatate (Tessalon Perles) 200 mg PO TID [facility] Stop: 03/01/18 11:30 Last Admin: 03/01/18 08:17 Dose: 200 mg Ceftriaxone Sodium (Rocephin) 2 gm IVPUSH Q24H [facility] Last Admin: 02/27/18 11:20 Dose: 2 gm Guaifenesin/Codeine Phosphate (Robitussin Ac) 10 ml PO Q6H PRN PRN Reason: Cough Sodium Chloride (Normal Saline) 1,000 mls @ 1,000 mls/hr IV ONETIME ONE Stop: 02/27/18 10:06 Last Admin: 02/27/18 09:34 Dose: 1,000 mls/hr Azithromycin 500 mg/ Sodium (Chloride) 250 mls @ 250 mls/hr IV Q24H [facility] Last Admin: 03/01/18 08:19 Dose: 250 mls/hr Methylprednisolone Sodium Succinate (Solu-Medrol) 125 mg IVPUSH ONETIME ONE Stop: 02/27/18 09:06 Last Admin: 02/27/18 09:35 Dose: 125 mg Methylprednisolone Sodium Succinate (Solu-Medrol) 125 mg IVPUSH Q6H [facility] Stop: 03/01/18 17:01 Last Admin: 03/01/18 16:17 Dose: 125 mg Spironolactone (Aldactone) 50 mg PO DAILY [facility] Last Admin: 02/28/18 09:58 Dose: 50 mg Triamterene/HCTZ (Dyazide 25-37.5 Mg) 1 each PO DAILY [facility] Last Admin: 02/28/18 12:03 Dose: Not Given Triamterene/HCTZ (Dyazide 25-37.5 Mg) 1 each PO DAILY [facility] - Exam Quality Assessment: Reports: DVT Prophylaxis General: Reports: Alert, Oriented, Cooperative, No Acute Distress HEENT: Reports: Pupils Equal, Pupils Reactive, EOMI, Mucous Membr. Moist/[place] Neck: Reports: Supple Lungs: Reports: Normal Respiratory Effort, Wheezing (minimal, throughout lung mera) Cardiovascular: Reports: Regular Rate, Regular Rhythm GI/Abdominal Exam: Normal Bowel Sounds, Soft, Non-Tender, No Organomegaly, No Distention, No Abnormal Bruit, No Mass, Pelvis Stable (Female) Exam: Deferred Rectal (Female) Exam: Deferred Back Exam: Reports: Normal Inspection, Full Range of Motion Extremities: Normal Inspection, Normal Range of Motion, Non-Tender, No Pedal Edema, Normal Capillary Refill Skin: Reports: Warm, Dry, Intact Neurological: Reports: No New Focal Deficit Psy/Mental Status: Reports: Alert, Normal Affect, Normal Mood
== END 2018-03-02 13:14 | disposition home or self-care (01) | DRG 139 ==
LOC: JD.ED 08:41 → JD.MS 11:51
PROVIDERS: ADMIT Internal Medicine Cardiovascular Disease; ATTEND Internal Medicine Cardiovascular Disease
DX: J15.7 Pneumonia due to Mycoplasma pneumoniae (principal); E66.01 Morbid (severe) obesity due to excess calories; Z68.45 Body mass index [BMI] 70 or greater, adult; R09.02 Hypoxemia; F41.9 Anxiety disorder, unspecified; E28.2 Polycystic ovarian syndrome; G57.10 Meralgia paresthetica, unspecified lower limb; B97.81 Human metapneumovirus as the cause of diseases classified elsewhere; I10 Essential (primary) hypertension; R00.0 Tachycardia, unspecified; T38.0X5A Adverse effect of glucocorticoids and synthetic analogues, initial encounter; T48.6X5A Adverse effect of antiasthmatics, initial encounter; F43.10 Post-traumatic stress disorder, unspecified
CPT/HCPCS: 36415; 71046; 71046-26; 80048; 80053; 80061; 83605; 83735; 84443; 84703; 85025; 86140; 86738; 87040; 87070; 87205; 87486; 87581; 87633; 87798; 87804; 87899; 93005; 94640; 94667; 94760; 96361; 96374; 96375; 97161-GP; 99284; 99285-25; A9270-GY; J0360; J0456; J0696; J1650; J2930; J7040; J7050; J7060